=== PATIENT | female | born 1975 | race Caucasian/White ===

== ENCOUNTER 2016-09-25 08:20 | Outpatient (CLI) | payer OTHER | END 2016-09-25 08:21 | disposition home or self-care (01) | DX: N92.1 Excessive and frequent menstruation with irregular cycle (principal) ==

== ENCOUNTER 2016-10-07 05:46 | Emergency (ER) | payer OTHER ==
[2016-10-07] MEDS ORDERED: SODIUM CHLORIDE 0.9% 1,000 ML IV STA (07:00)
[2016-10-07] MEDS ORDERED: ONDANSETRON 4 MG/2 ML VIAL IVP STA (07:00)
[2016-10-07] MEDS ORDERED: ONDANSETRON 4 MG/2 ML VIAL ONE (07:06)
[2016-10-07] MEDS ORDERED: DIPHENOX/ATROPINE 2.5/0.025 MG TABLET PO STA (07:14)
[2016-10-07] MEDS ORDERED: KETOROLAC 60 MG/2 ML VIAL IVP STA (07:14)
[2016-10-07] MEDS ORDERED: DIPHENOX/ATROPINE 2.5/0.025 MG TABLET PO ONE (07:21)
[2016-10-07] MEDS ORDERED: KETOROLAC 60 MG/2 ML VIAL ONE (07:22)
[2016-10-07] MEDS ORDERED: HYDROmorphone 1 MG/ML SYRINGE IVP STA (08:31)
[2016-10-07] MEDS ORDERED: HYDROmorphone 1 MG/ML SYRINGE ONE (08:41)
== END 2016-10-07 09:26 | disposition home or self-care (01) ==
DX: R19.7 Diarrhea, unspecified (principal); R10.84 Generalized abdominal pain; R11.2 Nausea with vomiting, unspecified
CPT/HCPCS: 36415; 80053; 81001; 81025; 83690; 85025; 87045; 87046; 87086; 87493; 96374; 96375; 99283; 99284; A9270; J1170

== ENCOUNTER 2017-04-06 08:11 | Outpatient (CLI) | payer OTHER ==
[2017-04-06 13:53] LABS: BASOPHILS # (AUTO) 0.1 10^3/uL (0.0-0.1); EOSINOPHILS # (AUTO) 0.3 10^3/uL (0.0-0.7); EOSINOPHILS % (AUTO) 3.2 %; HCT - HEMATOCRIT 35.8 % (37.0-47.0); HGB - HEMOGLOBIN 11.5 g/dL (12.0-16.0); LYMPHOCYTES # (AUTO) 1.3 10^3/uL (1.5-3.5); MEAN CORPUSCULAR HEMOGLOBIN 25.1 pg (27.0-31.0); MEAN CORPUSCULAR HGB CONC 32.1 g/dL (32.0-36.0); MEAN CORPUSCULAR VOLUME 78.2 fL (81.0-99.0); MEAN PLATELET VOLUME 8.8 fL (7.9-10.8); MONOCYTES # (AUTO) 0.7 10^3/uL (0.0-1.0); NEUTROPHILS # (AUTO) 8.5 10^3/uL (1.5-6.6); NEUTROPHILS % (AUTO) 77.8 %; NUCLEATED RED BLOOD CELLS AUTO 0.1 /100WBC; RED BLOOD COUNT 4.58 10^6/uL (4.20-5.40); RED CELL DISTRIBUTION WIDTH 15.5 % (12.0-15.0)
[2017-04-06 14:28] LABS: IRON 34 ug/dL (28-170); TOTAL IRON BINDING CAPACITY 288 ug/dL (250-450); TRANSFERRIN 206 mg/dL (192-382)
== END 2017-04-06 08:12 | disposition home or self-care (01) ==
LOC: LAB.WCP 08:11
PROVIDERS: ATTEND Family Medicine
DX: D50.9 Iron deficiency anemia, unspecified (principal)
CPT/HCPCS: 36415; 82728; 83540; 84466; 85025

== ENCOUNTER 2017-04-12 08:21 | Emergency (ER) | payer OTHER ==
[2017-04-12] MEDS ORDERED: SODIUM CHLORIDE 0.9% 1,000 ML IV ONE (09:20)
[2017-04-12] MEDS ORDERED: HYDROmorphone 1 MG/ML SYRINGE IVP STA ×2 (09:20→11:06)
[2017-04-12 09:26] LABS: BASOPHILS # (AUTO) 0.1 10^3/uL (0.0-0.1); BASOPHILS % (AUTO) 0.6 %; EOSINOPHILS # (AUTO) 0.4 10^3/uL (0.0-0.7); HCT - HEMATOCRIT 32.8 % (37.0-47.0); HGB - HEMOGLOBIN 10.5 g/dL (12.0-16.0); LYMPHOCYTES # (AUTO) 1.3 10^3/uL (1.5-3.5); LYMPHOCYTES % (AUTO) 12.1 %; MEAN CORPUSCULAR HGB CONC 32.2 g/dL (32.0-36.0); MEAN CORPUSCULAR VOLUME 77.6 fL (81.0-99.0); MEAN PLATELET VOLUME 8.4 fL (7.9-10.8); MONOCYTES # (AUTO) 0.8 10^3/uL (0.0-1.0); MONOCYTES % (AUTO) 7.7 %; NEUTROPHILS # (AUTO) 8.3 10^3/uL (1.5-6.6); NEUTROPHILS % (AUTO) 75.6 %; RED BLOOD COUNT 4.22 10^6/uL (4.20-5.40); RED CELL DISTRIBUTION WIDTH 15.2 % (12.0-15.0); UNCORRECTED WHITE BLOOD COUNT 10.9 x10^3/uL; WHITE BLOOD COUNT 10.9 x10^3/uL (4.8-10.8)
--- NOTE | 2017-04-12 09:28 | ED Physician Documentation ---
History of Present Illness - Stated complaint Stated Complaint: FEMALE - Chief complaint Chief Complaint: General - Additonal information Additional information: Patient is a 42-year-old female with a history of dysfunctional uterine bleeding. She is under the care of her SUPERVISOR PASTRY has had negative biopsies. She has had persistent bleeding for months that has been refractory to Depo-Provera and oral control pills. She is here with continued bleeding, the passage of clots, and a feeling of lightheadedness. She has never required a blood transfusion but has had iron transfusions in the past. She has no fever chills there is no nausea vomiting she is heavy vaginal bleeding and lower abdominal pain and cramping. She is supposed to see a physician at [facility] to be evaluated for a hysterectomy. She has never had children. She does have hypertension and diabetes that are relatively well controlled. She does have a history of significant obesity. Review of systems: For pertinent positive and negatives in the review of systems please see the history of present illness, otherwise all other systems have been reviewed and are negative. Dragon disclaimer: Parts of this medical record were created using voice recognition technology. Because of the inherent limitations of this system, occasional same sounding word substitutions do occur and persist despite proofreading. Please read the document for context. Review of Systems GI: reports: Abdominal Pain. denies: Abdominal Swelling, Nausea, Vomiting : reports: Vaginal bleeding, Irregular menses PD PAST MEDICAL HISTORY - Past Medical History Past Medical History: Yes Cardiovascular: Hypertension Respiratory: None Neuro: None Endocrine/Autoimmune: None GI: None : Chronic bladder infection HEENT: None Psych: None Musculoskeletal: Chronic back pain Derm: None - Past Surgical History Past Surgical History: Yes HEENT: Cataracts - Present Medications Home Medications: Ambulatory Orders Medication Instructions Recorded Confirmed Atenolol 50 mg PO BID 08/26/13 07/23/16 Hydrochlorothiazide 25 mg PO DAILY 04/12/17 04/12/17 Progesterone,Micronized 200 mg PO DAILY PM #30 capsule 04/12/17 [Prometrium] oxyCODONE/ACET 5/325 [Percocet 5 1 each PO ONCE PRN #16 tablet 04/12/17 mg/325 mg] - Allergies Allergies/Adverse Reactions: Allergies Allergy/AdvReac Type Severity Reaction Status Date / Time ketorolac tromethamine * Allergy Itching Verified 04/12/17 09:37 [From Toradol] Sulfa (Sulfonamide Allergy Rash Verified 04/18/16 19:05 Antibiotics) - Social History Does the pt smoke?: No Smoking Status: Never smoker Does the pt drink ETOH?: Yes Does the pt have substance abuse?: No - Immunizations Immunizations are current?: Yes - POLST Patient has POLST: No PD ED PE NORMAL - Vitals Vital signs reviewed: Yes - General General: Alert 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, No acute distress, Well developed/nourished - HEENT HEENT: Atraumatic, Pharynx benign - Neck Neck: Supple, no meningeal sign, No JVD, No bruit - Cardiac Cardiac: RRR, No murmur, No gallop, No rub - Respiratory Respiratory: No respiratory distress, Clear bilaterally - Abdomen Abdomen: Normal bowel sounds, Soft, Non tender, Non distended - Derm Derm: Normal color, Warm and dry, No rash, Other - Extremities Extremities: No deformity, No tenderness to palpate, Normal ROM s pain, No edema - Neuro Neuro: Alert 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 Results - Vitals Vitals: Vital Signs - 24 hr 04/12/17 04/12/17 04/12/17 08:28 09:33 10:45 Temperature 36.3 C L 36.6 C 36.6 C Heart Rate 94 94 97 Respiratory 18 16 18 Rate Blood Pressure 147/98 H 143/86 H 138/98 H O2 Saturation 98 98 97 04/12/17 04/12/17 04/12/17 11:25 11:36 11:52 Temperature 36.5 C Heart Rate 70 95 94 Respiratory 18 15 16 Rate Blood Pressure 129/73 123/85 H 114/82 H O2 Saturation 96 94 04/12/17 04/12/17 12:30 14:23 Temperature 36.5 C Heart Rate 90 95 Respiratory 18 18 Rate Blood Pressure 146/89 H 134/88 H O2 Saturation 97 100 Oxygen O2 Source Room air - Labs Labs: Laboratory Tests 04/12/17 04/12/17 04/12/17 09:05 09:05 09:05 WBC 10.9 H RBC 4.22 Hgb 10.5 L Hct 32.8 L MCV 77.6 L MCH 25.0 L MCHC 32.2 RDW 15.2 H Plt Count 299 MPV 8.4 Neut # 8.3 H Lymph # 1.3 L Bladen # 0.8 Eos # 0.4 Baso # 0.1 Absolute Nucleated RBC 0.00 Nucleated RBCs 0.0 Sodium Potassium Chloride Carbon Dioxide Anion Gap BUN Creatinine Estimated GFR (MDRD) Glucose Calcium Iron TIBC % Saturation Transferrin Ferritin 12.4 Total Bilirubin AST ALT Alkaline Phosphatase Total Protein Albumin Globulin Albumin/Globulin Ratio Lipase Urine Color Urine Clarity Urine pH Ur Specific [place] Urine Protein Urine Glucose (UA) Urine Ketones Urine Occult Blood Urine Nitrite Urine Bilirubin Urine Urobilinogen Ur Leukocyte Esterase Urine RBC Urine WBC Urine WBC Clumps Ur Squamous Epith Cells Urine Bacteria Ur Microscopic Review Urine Culture Comments Urine HCG, Qual Blood Type Blood Type Recheck A POSITIVE Antibody Screen 04/12/17 04/12/17 04/12/17 09:14 09:14 10:40 WBC RBC Hgb Hct MCV MCH MCHC RDW Plt Count MPV Neut # Lymph # Bladen # Eos # Baso # Absolute Nucleated RBC Nucleated RBCs Sodium 136 Potassium 3.9 Chloride 106 Carbon Dioxide 23 Anion Gap 7.0 BUN 10 Creatinine 0.6 Estimated GFR (MDRD) 110 Glucose 146 H Calcium 8.4 L Iron 21 L TIBC 290 % Saturation 7 L Transferrin 207 Ferritin Total Bilirubin 0.4 AST 17 ALT 21 Alkaline Phosphatase 83 Total Protein 7.1 Albumin 3.3 Globulin 3.8 Albumin/Globulin Ratio 0.9 L Lipase 35 Urine Color RED/BLOODY Urine Clarity BLOODY Urine pH 7.5 Ur Specific [place] 1.010 Urine Protein >=300 H Urine Glucose (UA) NEGATIVE Urine Ketones NEGATIVE Urine Occult Blood LARGE H Urine Nitrite NEGATIVE Urine Bilirubin NEGATIVE Urine Urobilinogen 1 (NORMAL) Ur Leukocyte Esterase TRACE H Urine RBC TNTC H Urine WBC 11-25 H Urine WBC Clumps PRESENT Ur Squamous Epith Cells FEW Squamous Urine Bacteria None Seen Ur Microscopic Review INDICATED Urine Culture Comments INDICATED Urine HCG, Qual NEGATIVE Blood Type A POSITIVE Blood Type Recheck Antibody Screen NEGATIVE PD MEDICAL DECISION MAKING - ED course Complexity details: reviewed old records, reviewed results, re-evaluated patient , considered differential, d/w patient, d/w family ED course: 42-year-old female with morbid obesity and a long history of heavy vaginal bleeding refractory to Depo-Provera who is currently on oral contraceptives. She presents with lower abdominal pain and cramping and passage of clots. She does look well on examination without any obvious evidence of anemia. Her vital signs are stable. Her hemoglobin was 10 here. Her iron was low again so she is given iron infusion here in emergency department which she tolerated nicely. She was given couple doses of pain medication and currently looks and feels much better. Based on the patient's obesity I believe her dysfunctional uterine bleeding is probably related to estrogen excess and I think giving her supplemental progesterone in the form of Prometrium is probably the best course of action. She will be prescribed Prometrium 200 mg to take each night and was also prescribed a small amount of narcotic analgesia. I have asked her to watch her symptoms closely in case her bleeding persists persists persists or gets worse. I recommended that she follow-up with her SUPERVISOR PASTRY as soon as possible to see if they can expedite her consultation with [facility] for possible hysterectomy. She agrees to watch her symptoms closely and return should she become symptomatic. I disposition: To home Clinical impression: 1. Dysfunctional uterine bleeding- 2. Morbid obesity and probable estrogen excess 3. Iron deficiency status post iron infusion Departure - Departure Disposition: 01 Home, Self Care Clinical Impression: Dysfunctional uterine bleeding Condition: Good Instructions: ED Bleed Irregular Vaginal, ED Cramping Menstrual Follow-Up: Luann Carrillo DO [Primary Care Provider] - Prescriptions: oxyCODONE/ACET 5/325 [Percocet 5 mg/325 mg] 1 each PO ONCE PRN #16 tablet PRN Reason: Pain Progesterone,Micronized [Prometrium] 200 mg PO DAILY PM #30 capsule Comments: Recommend that you stop the oral contraceptive. Your irregular and heavy vaginal bleeding is very likely due to estrogen excess. I recommend he take Prometrium at night because it causes sedation and continue to watch her symptoms closely for worsening. I recommend you get follow-up as soon as you can with [facility] for evaluation for hysterectomy. If worse please return Forms: Activity restrictions
[2017-04-12] MEDS ORDERED: KETOROLAC 30 MG/ML VIAL ONE (09:30)
[2017-04-12] MEDS ORDERED: HYDROmorphone 1 MG/ML SYRINGE ONE ×2 (09:31→11:16)
[2017-04-12] MEDS ORDERED: SODIUM CHLORIDE FLUSH 0.9% 10 ML SYRINGE IVP ONE ×2 (09:33→11:17)
[2017-04-12] MEDS: KETOROLAC 60 MG/2 ML VIAL IVP STA ×2 (09:33→09:38)
[2017-04-12 09:49] LABS: ALBUMIN/GLOBULIN RATIO 0.9 (1.0-2.2); BILIRUBIN,TOTAL 0.4 mg/dL (0.2-1.0); CALCIUM 8.4 mg/dL (8.5-10.3); CREATININE 0.6 mg/dL (0.4-1.0); POTASSIUM 3.9 mmol/L (3.5-5.0); TOTAL PROTEIN 7.1 g/dL (6.7-8.2)
[2017-04-12 10:54] LABS: BILIRUBIN,URINE NEGATIVE (NEGATIVE); PH,URINE 7.5 PH (5.0-7.5)
[2017-04-12 10:57] LABS: HCG UR QUAL NEGATIVE; UA w/ MICROSCOPIC CHARGE YES
[2017-04-12] MEDS ORDERED: IRON SUCROSE 200 MG in SODIUM CHLORIDE 0.9% 100ML 100 ML IV ONE (11:03)
[2017-04-12 11:20] LABS: UR CULTURE IF IND INDICATED
[2017-04-12] MEDS ORDERED: HYDROcod/ACETAM 5/325 MG TABLET PO STA (13:58)
[2017-04-12] MEDS ORDERED: HYDROcod/ACETAM 5/325 MG TABLET ONE (14:06)
[2017-04-12 14:23] VITALS: BP 134/88
== END 2017-04-12 14:36 | disposition home or self-care (01) ==
LOC: ED 08:21
DX: N93.8 Other specified abnormal uterine and vaginal bleeding (principal); D50.9 Iron deficiency anemia, unspecified; E66.01 Morbid (severe) obesity due to excess calories; Z79.899 Other long term (current) drug therapy; I10 Essential (primary) hypertension
CPT/HCPCS: 36415; 80053; 81001; 81025; 82728; 83540; 83690; 84466; 85025; 86850; 86900; 86901; 87086; 96374; 96376; 99284; A9270; J1170; J1756; 81003

== ENCOUNTER 2017-04-22 14:05 | Outpatient (CLI) | payer OTHER ==
[2017-04-22 19:30] LABS: BASOPHILS # (AUTO) 0.1 10^3/uL (0.0-0.1); BASOPHILS % (AUTO) 0.9 %; EOSINOPHILS # (AUTO) 0.5 10^3/uL (0.0-0.7); EOSINOPHILS % (AUTO) 3.8 %; HCT - HEMATOCRIT 29.1 % (37.0-47.0); HGB - HEMOGLOBIN 9.3 g/dL (12.0-16.0); LYMPHOCYTES % (AUTO) 15.5 %; MEAN CORPUSCULAR HGB CONC 31.9 g/dL (32.0-36.0); MEAN CORPUSCULAR VOLUME 78.3 fL (81.0-99.0); MEAN PLATELET VOLUME 8.5 fL (7.9-10.8); MONOCYTES % (AUTO) 8.1 %; NEUTROPHILS # (AUTO) 9.1 10^3/uL (1.5-6.6); NEUTROPHILS % (AUTO) 71.7 %; NUCLEATED RED BLOOD CELLS AUTO 0.1 /100WBC; RED BLOOD COUNT 3.72 10^6/uL (4.20-5.40); UNCORRECTED WHITE BLOOD COUNT 12.7 x10^3/uL; WHITE BLOOD COUNT 12.7 x10^3/uL (4.8-10.8)
== END 2017-04-22 14:06 | disposition home or self-care (01) ==
LOC: LAB.WCP 14:05
PROVIDERS: ATTEND Family Medicine
DX: D64.9 Anemia, unspecified (principal)
CPT/HCPCS: 36415; 85025

== ENCOUNTER 2017-04-23 12:44 | Day surgery (SDC) | payer OTHER ==
--- NOTE | 2017-04-23 13:11 | ED Physician Documentation ---
PD HPI FEMALE - Stated complaint Stated Complaint: FEMALE - Chief complaint Chief Complaint: Abd Pain - History obtained from History obtained from: Patient - History of Present Illness Timing - onset: How many months ago (4) Timing - duration: Months (has had 4 months of nearly daily vaginal bleeding, and has gotten iron infusion recently with slight boost in blood count. Had some increase in rate of bleeding the past couple days. Feeling weak and tired. Blood count dropped from Hgb 10 to 9 over few days, so referred to ED by PCP to see METHODS TIME ANALYST.) Timing - details: Gradual onset, Waxing and waning Associated symptoms: Vaginal bleeding. No: Vaginal discharge, Genital sore/ lesion Similar symptoms before: Has not had sx before Recently seen: Clinic Review of Systems Constitutional: denies: Fever, Chills Neurologic: reports: Generalized weakness. denies: Focal weakness, Numbness, Near syncope Endocrine: denies: Easy bruising / bleeding PD PAST MEDICAL HISTORY - Past Medical History Cardiovascular: Hypertension Respiratory: None Neuro: None Endocrine/Autoimmune: None GI: None : Chronic bladder infection HEENT: None Psych: None Musculoskeletal: Chronic back pain Derm: None - Past Surgical History Past Surgical History: Yes HEENT: Cataracts - Present Medications Home Medications: Ambulatory Orders Medication Instructions Recorded Confirmed Progesterone,Micronized 200 mg PO DAILY PM #30 capsule 04/12/17 [Prometrium] Furosemide [Lasix] 40 mg PO DAILY 04/23/17 04/23/17 Potassium Chloride 20 meq PO 04/23/17 Ranitidine HCl [Heartburn Relief] 75 mg PO 04/23/17 - Allergies Allergies/Adverse Reactions: Allergies Allergy/AdvReac Type Severity Reaction Status Date / Time ketorolac tromethamine * Allergy Itching Verified 04/23/17 12:51 [From Toradol] Sulfa (Sulfonamide Allergy Rash Verified 04/23/17 12:51 Antibiotics) - Social History Does the pt smoke?: No Smoking Status: Never smoker Does the pt drink ETOH?: Yes Does the pt have substance abuse?: No - Immunizations Immunizations are current?: Yes - POLST Patient has POLST: No PD ED PE NORMAL - Vitals Vital signs reviewed: Yes - General General: Alert 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, No acute distress, Well developed/nourished - Abdomen Abdomen: Normal bowel sounds, Soft, Non tender, Non distended, No organomegaly - Female Female : Deferred - Rectal Rectal: Deferred - Back Back: No CVA TTP Results - Vitals Vitals: Vital Signs - 24 hr 04/23/17 04/23/17 04/23/17 12:47 18:16 19:10 Temperature 36.6 C Heart Rate 92 106 H Respiratory 16 16 Rate Blood Pressure 138/85 H 135/78 H Blood Pressure [Brachial artery] O2 Saturation 99 98 100 04/23/17 04/23/17 04/23/17 19:15 19:20 19:30 Temperature Heart Rate Respiratory Rate Blood Pressure Blood Pressure [Brachial artery] O2 Saturation 97 96 96 04/23/17 04/23/17 04/23/17 19:44 19:47 20:11 Temperature 36.8 C 37 C Heart Rate 100 98 Respiratory 16 16 Rate Blood Pressure Blood Pressure 156/80 H 165/86 H [Brachial artery] O2 Saturation 95 94 95 04/23/17 20:35 Temperature 37.0 C Heart Rate 96 Respiratory 16 Rate Blood Pressure Blood Pressure 158/81 H [Brachial artery] O2 Saturation 97 Oxygen O2 Source Room air - Labs Labs: Laboratory Tests 04/23/17 04/23/17 04/23/17 14:08 14:08 14:08 WBC 12.4 H RBC 3.70 L Hgb 9.1 L Hct 28.2 L MCV 76.2 L MCH 24.5 L MCHC 32.1 RDW 15.7 H Plt Count 303 MPV 8.0 PT 12.0 INR 1.1 APTT 24.9 Sodium 137 Potassium 3.4 L Chloride 103 Carbon Dioxide 26 Anion Gap 8.0 BUN 15 Creatinine 0.7 Estimated GFR (MDRD) 92 Glucose 106 H Calcium 8.8 Total Bilirubin 0.2 AST 20 ALT 33 Alkaline Phosphatase 86 Total Protein 7.3 Albumin 3.4 Globulin 3.9 Albumin/Globulin Ratio 0.9 L Lipase 27 TSH Urine Color Urine Clarity Urine pH Ur Specific [place] Urine Protein Urine Glucose (UA) Urine Ketones Urine Occult Blood Urine Nitrite Urine Bilirubin Urine Urobilinogen Ur Leukocyte Esterase Urine RBC Urine WBC Ur Squamous Epith Cells Urine Bacteria Urine Mucus Ur Microscopic Review Urine Culture Comments Urine HCG, Qual Blood Type Antibody Screen 04/23/17 04/23/17 04/23/17 14:08 14:08 14:35 WBC RBC Hgb Hct MCV MCH MCHC RDW Plt Count MPV PT INR APTT Sodium Potassium Chloride Carbon Dioxide Anion Gap BUN Creatinine Estimated GFR (MDRD) Glucose Calcium Total Bilirubin AST ALT Alkaline Phosphatase Total Protein Albumin Globulin Albumin/Globulin Ratio Lipase TSH 2.22 Urine Color RED/BLOODY Urine Clarity BLOODY Urine pH 7.0 Ur Specific [place] 1.020 Urine Protein 100 H Urine Glucose (UA) NEGATIVE Urine Ketones NEGATIVE Urine Occult Blood LARGE H Urine Nitrite NEGATIVE Urine Bilirubin NEGATIVE Urine Urobilinogen 0.2 (NORMAL) Ur Leukocyte Esterase TRACE H Urine RBC TNTC H Urine WBC >25 H Ur Squamous Epith Cells MOD Squamous H Urine Bacteria Rare Urine Mucus Ur Microscopic Review INDICATED Urine Culture Comments Urine HCG, Qual NEGATIVE Blood Type A POSITIVE Antibody Screen NEGATIVE 04/23/17 18:55 WBC RBC Hgb Hct MCV MCH MCHC RDW Plt Count MPV PT INR APTT Sodium Potassium Chloride Carbon Dioxide Anion Gap BUN Creatinine Estimated GFR (MDRD) Glucose Calcium Total Bilirubin AST ALT Alkaline Phosphatase Total Protein Albumin Globulin Albumin/Globulin Ratio Lipase TSH Urine Color YELLOW Urine Clarity HAZY Urine pH 6.0 Ur Specific [place] >=1.030 H Urine Protein NEGATIVE Urine Glucose (UA) NEGATIVE Urine Ketones NEGATIVE Urine Occult Blood TRACE-INTA Urine Nitrite NEGATIVE Urine Bilirubin NEGATIVE Urine Urobilinogen 0.2 (NORMAL) Ur Leukocyte Esterase NEGATIVE Urine RBC 0-5 Urine WBC 0-3 Ur Squamous Epith Cells MANY Squamous H Urine Bacteria Rare Urine Mucus Few Strands Ur Microscopic Review Urine Culture Comments NOT INDICATED Urine HCG, Qual Blood Type Antibody Screen PD MEDICAL DECISION MAKING - ED course Complexity details: reviewed results, considered differential (vaginal bleeding for 3-4 months with recent workup of labs and ultrasound, referred to ED to have METHODS TIME ANALYST evaluation. Dr. Wills came to ED soon after patient arrival. Patient is stable at this time. ), d/w patient, other (Dr. Wills saw patient and will take her to OR for scope and biopsies, and possible curretage. ) Departure - Departure Disposition: ED Transfer to [facility] Clinical Impression: Dysfunctional uterine bleeding Anemia Qualifiers: Anemia type: iron deficiency Iron deficiency anemia type: chronic blood loss Qualified Code(s): D50.0 - Iron deficiency anemia secondary to blood loss ( chronic) Condition: Stable Record reviewed to determine appropriate education?: Yes Discharge Date/Time: 04/23/17 18:17
[2017-04-23] MEDS ORDERED: HYDROcod/ACETAM 5/325 MG TABLET PO STA (13:26)
[2017-04-23] MEDS ORDERED: HYDROcod/ACETAM 5/325 MG TABLET ONE (13:36)
[2017-04-23 14:30] LABS: HCT - HEMATOCRIT 28.2 % (37.0-47.0); HGB - HEMOGLOBIN 9.1 g/dL (12.0-16.0); MEAN CORPUSCULAR HEMOGLOBIN 24.5 pg (27.0-31.0); MEAN CORPUSCULAR HGB CONC 32.1 g/dL (32.0-36.0); MEAN CORPUSCULAR VOLUME 76.2 fL (81.0-99.0); RED BLOOD COUNT 3.7 10^6/uL (4.20-5.40); RED CELL DISTRIBUTION WIDTH 15.7 % (12.0-15.0); WHITE BLOOD COUNT 12.4 x10^3/uL (4.8-10.8)
[2017-04-23 14:37] LABS: INR 1.1 (0.8-1.2)
[2017-04-23 14:39] LABS: ALBUMIN/GLOBULIN RATIO 0.9 (1.0-2.2); BILIRUBIN,TOTAL 0.2 mg/dL (0.2-1.0); CALCIUM 8.8 mg/dL (8.5-10.3); CREATININE 0.7 mg/dL (0.4-1.0); POTASSIUM 3.4 mmol/L (3.5-5.0); TOTAL PROTEIN 7.3 g/dL (6.7-8.2)
[2017-04-23 14:44] LABS: PARTIAL THROMBOPLASTIN TIME 24.9 secs (24.9-33.3)
[2017-04-23 15:15] LABS: BILIRUBIN,URINE NEGATIVE (NEGATIVE)
[2017-04-23 15:31] LABS: HCG UR QUAL NEGATIVE; UA w/ MICROSCOPIC CHARGE YES
[2017-04-23 15:32] LABS: WBC,URINE >25 /HPF (0-5)
[2017-04-23] MEDS ORDERED: HYDROmorphone 1 MG/ML SYRINGE IVP STA (16:34)
[2017-04-23] MEDS ORDERED: ONDANSETRON 4 MG/2 ML VIAL IVP STA (16:34)
[2017-04-23] MEDS ORDERED: LACTATED RINGERS 1,000 ML IV STA (16:34)
[2017-04-23] MEDS ORDERED: SODIUM CHLORIDE FLUSH 0.9% 10 ML SYRINGE IVP ONE (16:35)
[2017-04-23] MEDS ORDERED: ONDANSETRON 4 MG/2 ML VIAL ONE (16:52)
[2017-04-23] MEDS ORDERED: PROPOFOL 200 MG/20 ML VIAL IVP ONE (18:00)
[2017-04-23] MEDS ORDERED: SUCCINYLCHOLINE 200 MG/10 ML VIAL IVP ONE (18:00)
[2017-04-23] MEDS ORDERED: MIDAZOLAM 2 MG/2 ML VIAL IVP ONE (18:00)
[2017-04-23] MEDS ORDERED: ROCURONIUM 50 MG/5 ML VIAL IVP ONE (18:00)
[2017-04-23] MEDS ORDERED: fentaNYL 100 MCG/2 ML VIAL IVP ONE (18:00)
[2017-04-23] MEDS ORDERED: LACTATED RINGERS 1,000 ML IV ONE ×2 (18:36→19:20)
[2017-04-23] MEDS ORDERED: DEXAMETHASONE 4 MG/ML VIAL ONE (19:20)
[2017-04-23] MEDS ORDERED: ACETAMINOPHEN 1,000 MG/100 ML 100 ML IV ONE (19:20)
[2017-04-23 19:25] LABS: BILIRUBIN,URINE NEGATIVE (NEGATIVE)
[2017-04-23] MEDS: HYDROmorphone 1 MG/ML SYRINGE ONE ×2 (19:25→19:33)
[2017-04-23 19:31] LABS: UR CULTURE IF IND NOT INDICATED; WBC,URINE 0-3 /HPF (0-5)
[2017-04-23] MEDS ORDERED: HYDROmorphone 1 MG/ML SYRINGE ONE (19:33)
[2017-04-23] MEDS ORDERED: IBUPROFEN 600 MG TABLET PO ONE (19:55)
[2017-04-23 20:58] VITALS: BP 158/81
--- NOTE | 2017-04-24 08:31 | OPERATIVE REPORT ---
DATE OF SURGERY: 04/23/2017 00:00:00 PREOPERATIVE DIAGNOSES 1. Continued uterine bleeding and menorrhagia. 2. Failure of multiple medical treatments. 3. Morbid obesity, BMI 61. 4. Hypertension. 5. Anemia. 6. Obstructive sleep apnea. POSTOPERATIVE DIAGNOSES 1. Abnormal thickening of the endometrium, suspect hyperplasia. 2. Await final pathology. NAME OF PROCEDURE 1. Diagnostic Video hysteroscopy. 2. Fractional dilatation and curettage. 3. Exam under anesthesia. SURGEON: Aiden Wills MD, FACOG, [facility] ANESTHESIA: Lakesha Martin, Certified Nurse Fringe Maker. General, ET tube placed. COMPLICATIONS: None. ESTIMATED BLOOD LOSS: Less than 50. DRAINS: None. Patient straight catheterized prior to procedure. IV FLUIDS: 700. FLUID BALANCE: 1600 mL crystalloid in and 1500 out (measured) FINDINGS 1. The external genitalia has some hyperkeratosis, but no evidence of dysplastic or HPV type lesions. There are no ulcers or evident dystrophies. The introitus is nulliparous. 2. Vagina: Blood and old clots in the vault. Grade 1 midline cystorectocele. 3. Cervix: No cervical lesions or inflamation noted. Nulliparous. 4. Uterus: Difficult to evaluate by palpation, seemed slightly enlarged and retroverted. Adnexa not palpable. 5. Hysteroscopic findings: Endometrium overall has a global effect of proliferation. However, in the right cornual area and posterior aspect of the cornua, there is a mount of fluffy tissue that is evidently hyperplastic, but without dysplastic vascular changes. Moderate amount of blood in the uterine cavity which was evacuated. SPECIMENS #1 and #2: Two hysteroscopic biopsy specimens from the area of suspected hyperplasia. #3: Endocervical curettings. #4: Endometrial curettings. TECHNIQUE: Prior to the procedure, risks, benefits, and possible complications were discussed. She is aware of potential for continued bleeding, transfusion, perforation, infection, anesthesia reaction, airway collapse, and in rare possibility . All questions were answered and informed consent was signed in the emergency room. Prior to surgery clearance was re-accomplished with Lakesha Martin, the log buncher on record. The patient was brought to the operating room and placed in supine position for administration of general anesthesia. She was uneventfully induced and intubated using fiberoptic technique. After securing the airway, we moved to the procedure. She was moved to the low dorsal lithotomy position using Yellofin mobile stirrups. She was prepped and draped in the customary sterile fashion. She was straight catheterized of urine. Timeout consent was done per protocol. Exam under anesthesia was performed, reference findings. Large Graves speculum was inserted. The anterior cervical lip was grasped with single-toothed tenaculum. The cervix was gently dilated with Hegar probes 1 through 5. After dilation, the 5 mm diagnostic hysteroscope was introduced through the endocervical canal and into the uterine cavity. The cavity was filled with clots and was flushed several times before visualization was obtained. Systematic panorama of the uterine cavity was conducted. For the most part proliferative changes were seen except for tissue in right cornual and posterior aspect of the cornual region. This was biopsied with hysteroscopic forceps and submitted to Pathology. Next, a small curette was introduced into the endocervical canal and all 4 quadrants were sampled as specimen sent to Pathology. Endometrial curetting was done with a medium sized curette in a systematic fashion. Care was taken to avoid perforation. All 4 quadrants were scraped until uterine cry was elicited. Tissue samples were sent to pathology. We observed for 5 minutes to ensure that there was no continued bleeding. Hysteroscope was reinserted, and the cavity flushed. There was no evidence of perforation and approximately 75% of all tissue was sampled during curettage. The patient was extubated and uneventfully aroused from anesthesia. She went to the recovery room in stable condition. Postoperatively, she did well and was prepared for discharge home. DISCHARGE MEDICATIONS 1. Motrin 600 mg p.o. q.6h. around the clock for 3 days and then for pain as needed. 2. Vicodin 325/5 one tablet q.4h. sparingly p.r.n. pain. 3. Colace 100 b.i.d. x30 days. Patient will be seen in the office next week for tissue followup. JOB #: [id number] EXT JOB #:[id number] KIKO
--- NOTE | 2017-04-26 08:29 | HISTORY & PHYSICAL EXAMINATION ---
DATE OF ADMISSION: 04/23/2017 EMERGENCY ROOM CONSULT AND PREOPERATIVE HISTORY AND PHYSICAL DIAGNOSES 1. Continued menorrhagia despite multiple medical therapy. 2. Anemia. 3. Morbid obesity, 61%. 4. Hypertension. 5. Sleep apnea. 6. Depression. The patient slime is a 42-year-old nulligravida who has experienced 4 months of intermittent bouts of menorrhagia. Often she reports clots and the amount of blood loss has been accelerating over the last month. She reports fatigue, lightheadedness, and orthostatic signs. She was evaluated by her PCP, Dr. Carrillo, and sent to the emergency room for immediate gynecologic consultation due to the accelerating volume of blood loss and symptoms of anemia. She was originally seen at the [facility] by Rhianna Malcolm, certified nurse pattern finisher on the September. Numerous progesterone agents were used inclusive of Depo-Provera, Prometrium, Micronor, and combination OCPs. All these have failed to stop the bleeding. Ultrasound reveals an endometrial stripe of 7 mm with no myometrial pathology. There is no ovarian pathology noted. She was referred to Dr. Aiden Molina, who performed endometrial biopsy. They found no evidence of hyperplasia or dysplasia. In turn , she was referred to the [facility] for further workup and treatment. She denies a history of coagulopathy or a family history of easy bleeding tendency. She is currently not on NSAIDs. There is no foul discharge or history of STD. In the past, she states she underwent possible hysteroscopy at [facility]; however, no records of report could be found. PAST MEDICAL HISTORY: The patient has a history of hypertension and is currently on medication. She states she has been tested for diabetes on multiple occasions and negative with fasting blood sugars at or about 100. She does have a history of sleep apnea and uses CPAP machine. She carries a history of depression and currently uses citalopram plus a second SSRI high. MEDICATIONS 1. Citalopram. 2. Unnamed SSRI. 3. Antihypertensive type to be determined. ALLERGIES: NONE. 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 Prior smoker but has quit 15 years ago. Occasional alcohol. No drug use. FAMILY HISTORY: Depression mother, father, brother. Coronary artery disease. Father at 58. Hypertension, father, early onset at 34. Mother's history not known. Alcohol abuse in paternal grandfather. Depression in father, brother , and maternal relatives. REVIEW OF SYSTEMS CONSTITUTIONAL: Feels weak, orthostatic symptoms. HEENT: Negative. ENDOCRINE: Negative. CARDIAC: Negative. PULMONARY: Negative. GASTROINTESTINAL: Negative. MUSCULOSKELETAL: Joint pain due to arthritic rigors. PHYSICAL EXAMINATION GENERAL: The patient lying comfortably in bed, pickwickian body type, no labored breathing. VITAL SIGNS: Temperature 97.9, pulse 92, blood pressure 138/85, respiration rate 16, oxygenation 99. HENT: EOMI. Moist mucous membranes, good dentition LUNGS: CTA, distatant CARDIAC: regular 2/6 IVET ABDOMEN: Large pannus. No tenderness. EXTERNAL GENITALIA: Deferred to the OR. VAGINA: Bleeding and clots on pad, deferred to OR. CERVIX: Deferred to OR. UTERUS: Deferred to OR. Ultrasound shows that it is generous without myoma. EXTREMITIES: Mild edema. Some varicosities in the lower extremity. LABORATORIES: Sodium 137, potassium 3.4, glucose 106, creatinine 0.7, BUN 15, lipase negative. TSH normal 2.22, hemoglobin 9.1, platelets 303. Urine contaminated with blood. Hbg 10 grams ASSESSMENT: The patient has had prolonged uterine bleeding without obvious functional lesion and failure of systemic estrogen, progesterone, and combination estrogen and progesterone therapy. Her EMB is negative; however EMB can be falsely negative in 8% of cases. Given the prolonged bleeding, further investigation is warranted with hysteroscopy to characterize the anterior cavity and D and C to hopefully stem bleeding. We discussed possibility of continued medical therapy including returned to combination OCPs and/or IV Premarin. This is rejected. There is DVT risk given her body habitus. Coagulation defect is not suspected; however, citalopram in the literature has a small promotional effect on bleeding. Uncertain if this would be amplified with high dose progesterone. These bleeding defects though are thought to be negligible. PLAN: Discussed need for hysteroscopy and dilatation and curettage with the patient. Contrast this to medical therapy and possible waiting until she could be evaluated at the [facility]. She finds that the current bleeding is totally disruptive and she would rather not wait. We discussed the unique risks of anesthesia given her BMI. This was discussed in detail and Dawit of anesthesia came to the ER for consultation and cleared patient for anesthesia. Informed consent was signed and all questions answered. JOB #: [id number] EXT JOB #:[id number] KIKO
== END 2017-04-23 14:53 | disposition home or self-care (01) ==
LOC: ED 12:44 → SDS 14:52
PROVIDERS: ATTEND Obstetrics & Gynecology
PROC: 0UDB8ZX Extraction of Endometrium, Via Natural or Artificial Opening Endoscopic, Diagnostic (ICD-10-PCS; 2017-04-23)
PROC: 0UBC8ZX Excision of Cervix, Via Natural or Artificial Opening Endoscopic, Diagnostic (ICD-10-PCS; principal; 2017-04-23 16:30)
DX: N93.9 Abnormal uterine and vaginal bleeding, unspecified (principal); N92.0 Excessive and frequent menstruation with regular cycle; I10 Essential (primary) hypertension; D64.9 Anemia, unspecified; G47.33 Obstructive sleep apnea (adult) (pediatric); E66.01 Morbid (severe) obesity due to excess calories; Z68.44 Body mass index [BMI] 60.0-69.9, adult; Z87.891 Personal history of nicotine dependence
CPT/HCPCS: 36415; 58558; 80053; 81001; 81025; 83690; 84443; 85027; 85610; 85730; 86850; 86900; 86901; 93005; 96374; 96375; 99283; A9270; J0131; J1170; J7120; 81003; 87086

== ENCOUNTER 2017-04-24 22:53 | Outpatient (CLI) | payer OTHER | END 2017-04-24 22:54 | disposition critical access hospital (66) | LOC: EMS 22:53 | PROVIDERS: ATTEND Surgery | DX: R07.89 Other chest pain (principal); R42 Dizziness and giddiness | CPT/HCPCS: A0425; A0427 ==

== ENCOUNTER 2017-04-24 23:10 | Emergency (ER) | payer OTHER ==
--- NOTE | 2017-04-24 23:32 | ED Physician Documentation ---
PD HPI CHEST PAIN - Stated complaint Stated Complaint: CHEST PAIN - Chief complaint Chief Complaint: Cardiac - History obtained from History obtained from: Patient, Family, EMS - History of Present Illness Timing - onset: How many hours ago (1) Timing - onset during: Rest Timing - duration: Hours (1) Timing - details: Abrupt onset Pain level max: 4 Pain level now: 4 Quality: Aching, Sharp, Pain, Other (burning) Location: Substernal Radiation: Other (non-radiating) Improved by: Other (nothing, took tums without relief) Worsened by: Other (nothing) Associated symptoms: No: Shortness of air, Diaphoresis, Nausea, Vomiting, Feeling faint / dizzy, General Weakness, Palpitations, Cough Similar symptoms before: Has not had sx before Recently seen: Other (D&C for prolonged vaginal bleeding yesterday. was endotracheally intubated. Had been on multiple hormones to try to stop the bleeding since January) Review of Systems Ten Systems: 10 systems reviewed and negative Constitutional: denies: Fever, Chills Ears: denies: Ear pain Nose: denies: Rhinorrhea / runny nose, Congestion Throat: reports: Sore throat Respiratory: reports: Cough (mild, dry) GI: denies: Abdominal Pain, Vomiting, Diarrhea Skin: denies: Rash Musculoskeletal: denies: Neck pain, Back pain PD PAST MEDICAL HISTORY - Past Medical History Cardiovascular: Hypertension Respiratory: None Neuro: None Endocrine/Autoimmune: None GI: None : Chronic bladder infection HEENT: None Psych: None Musculoskeletal: Chronic back pain Derm: None - Past Surgical History Past Surgical History: Yes HEENT: Cataracts - Present Medications Home Medications: Ambulatory Orders Medication Instructions Recorded Confirmed Progesterone,Micronized 200 mg PO DAILY PM #30 capsule 04/12/17 [Prometrium] Furosemide [Lasix] 40 mg PO DAILY 04/23/17 04/23/17 Potassium Chloride 20 meq PO 04/23/17 Ranitidine HCl [Heartburn Relief] 75 mg PO 04/23/17 - Allergies Allergies/Adverse Reactions: Allergies Allergy/AdvReac Type Severity Reaction Status Date / Time ketorolac tromethamine * Allergy Itching Verified 04/23/17 12:51 [From Toradol] Sulfa (Sulfonamide Allergy Rash Verified 04/23/17 12:51 Antibiotics) - Social History Does the pt smoke?: No Smoking Status: Never smoker Does the pt drink ETOH?: Yes Does the pt have substance abuse?: No - Immunizations Immunizations are current?: Yes - POLST Patient has POLST: No PD ED PE NORMAL - Vitals Vital signs reviewed: Yes - General General: Alert 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, No acute distress - HEENT HEENT: Moist mucous membranes - Neck Neck: Supple, no meningeal sign - Cardiac Cardiac: RRR, Strong equal pulses - Respiratory Respiratory: No respiratory distress, Clear bilaterally - Abdomen Abdomen: Soft, Non tender, Non distended - Derm Derm: Warm and dry - Extremities Extremities: No calf tenderness / cord - Neuro Neuro: Alert 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 - Psych Psych: Normal mood, Normal affect Results - Vitals Vitals: Vital Signs - 24 hr 04/24/17 04/24/17 04/25/17 23:15 23:25 01:40 Temperature 37.2 C Heart Rate 95 90 Respiratory 16 18 Rate Blood Pressure 167/89 H 157/78 H O2 Saturation 99 96 Oxygen O2 Source Room air - EKG (time done) 2329 Rate: Rate (enter#) (90) Rhythm: NSR [place]: Normal Intervals: Normal [place] QRS: Normal Ischemia: Normal ST segments Computer interpretation: Agree with computer - Labs Labs: Laboratory Tests 04/24/17 04/24/17 04/24/17 23:45 23:45 23:45 WBC 11.7 H RBC 3.33 L Hgb 8.0 L Hct 25.3 L MCV 75.9 L MCH 24.0 L MCHC 31.6 L RDW 15.6 H Plt Count 281 MPV 7.7 L Neut # 8.4 H Lymph # 2.1 [place] # 0.9 Eos # 0.3 Baso # 0.1 Absolute Nucleated RBC 0.00 Nucleated RBCs 0.0 Sodium 137 Potassium 3.3 L Chloride 106 Carbon Dioxide 24 Anion Gap 7.0 BUN 17 Creatinine 0.7 Estimated GFR (MDRD) 92 Glucose 149 H Calcium 8.5 Total Bilirubin < 0.2 L AST 17 ALT 26 Alkaline Phosphatase 73 Troponin I < 0.04 Total Protein 6.7 Albumin 3.2 Globulin 3.5 Albumin/Globulin Ratio 0.9 L Lipase 36 - Rads (name of study) CT PA Radiology: Prelim report reviewed, EMP read contemporaneously, See rad report ( No evidence for pulmonary emboli. Mildly limited. No acute findings are seen) PD MEDICAL DECISION MAKING - ED course Complexity details: reviewed old records, reviewed results, re-evaluated patient , considered differential, d/w patient, d/w family ED course: Patient is a 42-year-old female who presents to the emergency department with burning type chest pain after surgery yesterday. Somewhat pleuritic. No evidence of PE on CT pulmonary angiogram. Normal oxygenation. Pain improved with Dilaudid. Also feels better after GI cocktail. She is very well-appearing , nontoxic. Afebrile. Hemoglobin did drop from 9 to 8, but this is expected after her surgery. Has an appointment with gynecology on Wednesday for repeat evaluation. Ambulating without difficulty and without dizziness throughout the emergency department. Steady gait. Patient counseled regarding signs and symptoms for which I believe and urgent re-evaluation would be necessary. Patient with good understanding of and agreement to plan and is comfortable going home at this time This document was made in part using voice recognition software. While efforts are made to proofread this document, sound alike and grammatical errors may occur. Departure - Departure Disposition: 01 Home, Self Care Clinical Impression: Atypical chest pain Condition: Good Instructions: ED Chest Pain Atypical Unkn Cause Follow-Up: Luann Carrillo DO [Primary Care Provider] - Aiden Wills MD [Provider Admit Priv/Credential] - Within 3 Days Comments: Return if you worsen. This should improve over the next few days. You should have your blood counts rechecked next week. Your blood pressure was elevated today on check in to the emergency department. This does not mean that you have hypertension, it is a common phenomenon to check into the emergency department and have elevated blood pressure. I recommend that you see your primary care physician within the week to have it rechecked when you're feeling better. Discharge Date/Time: 04/25/17 01:43
[2017-04-24] MEDS ORDERED: HYDROmorphone 1 MG/ML SYRINGE IVP STA (23:36)
[2017-04-24] MEDS ORDERED: IOPAMIDOL-300 100 ML VIAL ONE (23:42)
[2017-04-24 23:49] LABS: BASOPHILS # (AUTO) 0.1 10^3/uL (0.0-0.1); BASOPHILS % (AUTO) 0.5 %; EOSINOPHILS # (AUTO) 0.3 10^3/uL (0.0-0.7); EOSINOPHILS % (AUTO) 2.2 %; HCT - HEMATOCRIT 25.3 % (37.0-47.0); LYMPHOCYTES # (AUTO) 2.1 10^3/uL (1.5-3.5); LYMPHOCYTES % (AUTO) 17.7 %; MEAN CORPUSCULAR HGB CONC 31.6 g/dL (32.0-36.0); MEAN CORPUSCULAR VOLUME 75.9 fL (81.0-99.0); MEAN PLATELET VOLUME 7.7 fL (7.9-10.8); MONOCYTES # (AUTO) 0.9 10^3/uL (0.0-1.0); MONOCYTES % (AUTO) 7.9 %; NEUTROPHILS # (AUTO) 8.4 10^3/uL (1.5-6.6); NEUTROPHILS % (AUTO) 71.7 %; RED BLOOD COUNT 3.33 10^6/uL (4.20-5.40); RED CELL DISTRIBUTION WIDTH 15.6 % (12.0-15.0); UNCORRECTED WHITE BLOOD COUNT 11.7 x10^3/uL; WHITE BLOOD COUNT 11.7 x10^3/uL (4.8-10.8)
[2017-04-24] MEDS ORDERED: HYDROmorphone 1 MG/ML SYRINGE ONE (23:52)
[2017-04-25 00:01] LABS: ALBUMIN/GLOBULIN RATIO 0.9 (1.0-2.2); BILIRUBIN,TOTAL < 0.2 mg/dL (0.2-1.0); BUN - BLOOD UREA NITROGEN 17 mg/dL (6-20); CALCIUM 8.5 mg/dL (8.5-10.3); CARBON DIOXIDE - CO2 24 mmol/L (21-32); CHLORIDE 106 mmol/L (101-111); GLUCOSE 149 mg/dL (70-100); LIPASE 36 U/L (22-51); POTASSIUM 3.3 mmol/L (3.5-5.0); SODIUM 137 mmol/L (135-145); TOTAL PROTEIN 6.7 g/dL (6.7-8.2)
[2017-04-25] MEDS ORDERED: SODIUM CHLORIDE 0.9% 1,000 ML IV ONE (00:12)
[2017-04-25] MEDS ORDERED: IOPAMIDOL-300 100 ML VIAL IVP ONE (00:15)
[2017-04-25 00:24] LABS: CREATININE 0.7 mg/dL (0.4-1.0); GFR - MDRD 92 (>89)
--- NOTE | 2017-04-25 00:52 | CT Preliminary Report ---
Exam: CT Chest Angio (PE) IMPRESSION: 1. No evidence for pulmonary emboli. Mildly limited. No acute findings are seen. [facility] SITE ID: [id number]
[2017-04-25] MEDS ORDERED: LIDOCAINE VISCOUS 2% 15 ML UDC MM STA (00:53)
[2017-04-25] MEDS ORDERED: FAMOTIDINE 20 MG TABLET PO STA (00:53)
[2017-04-25] MEDS ORDERED: SUCRALFATE 1 GM/10 ML UDC PO STA (00:53)
[2017-04-25] MEDS ORDERED: MAG HYDROX/AL HYDROX/SIMETH 30 ML UDC PO STA (00:53)
--- NOTE | 2017-04-25 00:55 | CT Report ---
EXAM: CT ANGIOGRAM CHEST EXAM DATE: 04/25/2017 12:24 AM. CLINICAL HISTORY: Chest pain, post DC yesterday. COMPARISON: CT abdomen and pelvis 07/06/2016. TECHNIQUE: Routine helical imaging was performed through the chest in the pulmonary arterial phase. I V Contrast: 80 ML Isovue 300. Reconstructions: Coronal 3-D MIP reconstructions.Sagittal and coronal. In accordance with CT protocol optimization, one or more of the following dose reduction techniques w ere utilized for this exam: automated exposure control, adjustment of mA and/or KV based on patient s ize, or use of iterative reconstructive technique. FINDINGS: Pulmonary Arteries: No evidence for pulmonary emboli. Mild breathing motion artifact limited. Mildly limited due to mildly delayed contrast timing. Mediastinum: No thoracic aortic aneurysm or dissection. Normal heart size. Mildly prominent paratrach eal lymph node measuring 7 mm. Lungs/Pleura: No consolidation, nodules, or edema. No effusions or pneumothorax. Mild breathing motio n artifact limited. Mediastinum: Normal. No cardiac enlargement or adenopathy. Upper abdomen: No acute findings are seen. There appears to be fatty liver. IMPRESSION: 1. No evidence for pulmonary emboli. Mildly limited. No acute findings are seen. [facility] Referring Provider Line: [phone] SITE ID: [id number]
[2017-04-25] MEDS ORDERED: FAMOTIDINE 20 MG TABLET ONE (01:01)
[2017-04-25] MEDS ORDERED: LIDOCAINE VISCOUS 2% 15 ML UDC MM ONE (01:02)
[2017-04-25] MEDS ORDERED: MAG HYDROX/AL HYDROX/SIMETH 30 ML UDC ONE (01:02)
[2017-04-25] MEDS ORDERED: SUCRALFATE 1 GM/10 ML UDC ONE (01:02)
[2017-04-25 01:40] VITALS: BP 157/78
== END 2017-04-25 01:43 | disposition home or self-care (01) ==
LOC: EDUNIT# → ED 23:10 → SUPCPDRO 23:10 → ED 04-25 01:43
DX: R07.89 Other chest pain (principal); Z98.890 Other specified postprocedural states; I10 Essential (primary) hypertension
CPT/HCPCS: 36415; 71275; 80053; 83690; 84484; 85025; 93005; 96374; 99284; 99285; A9270; J1170; Q9967

== ENCOUNTER 2017-04-27 15:15 | Outpatient (CLI) | payer OTHER | END 2017-04-27 15:16 | disposition home or self-care (01) | LOC: LAB 15:15 | PROVIDERS: ATTEND Obstetrics & Gynecology | DX: Z13.0 Encounter for screening for diseases of the blood and blood-forming organs and certain disorders involving the immune mechanism (principal) | CPT/HCPCS: 36415; 85018 ==

== ENCOUNTER 2017-04-28 12:12 | Day surgery (SDC) | payer OTHER ==
--- NOTE | 2017-04-27 17:32 | HISTORY & PHYSICAL EXAMINATION ---
DATE OF ADMISSION: 04/27/2017 DIAGNOSES: 1. Continued menorrhagia despite multiple medical therapies. 2. Recent dilatation and curettage, and hysteroscopy that found progesterone effect without evidence of hyperplasia, dysplasia, or malignancy. 3. Morbid obesity, with 61% BMI. 4. Hypertension. 5. Sleep apnea. 6. Depression. HISTORY OF PRESENT ILLNESS: The patient is a 42-year-old nulligravida, who has had 4 months of menorrhagia punctuated by dysmenorrhea. She was seen in the emergency room on the er, referred from her PCP due to menorrhagia. Reference that detailed history and physical. She under went an uneventful hysteroscopy, and D and C that did not find any endometritis, hyperplasia, or edu gnancy. She was discharged home in good condition. On Wednesday, she returned to the emergency room by a mbulance for chest pain, with a negative workup. Reference Dr. Fuller's notes. EKG and CT scan were n egative. The patient continues to bleed post discharge. She states today, she had passage of large cl ots. Her hemoglobin today was 9.4, while her Wednesday baseline was 8.0. PAST MEDICAL HISTORY: The patient has a history of hypertension and is currently on medication. She t ested negative for diabetes. She is known to have sleep apnea and currently uses a CPAP machine. She reports mild depression and uses citalopram. MEDICATIONS: 1. Citalopram. 2. Unnamed SSRI. 3. Antihypertensive. ALLERGIES: NONE. SOCIAL HISTORY: . 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 Prior smoker, but quit 15 years ago. Occasional al cohol. No drug use. FAMILY HISTORY: Depression in mother, father, and brother. Positive coronary artery disease, with hyp ertension. REVIEW OF SYSTEMS: She feels weak and fatigued. HEENT: Negative. ENDOCRINE: Negative. CARDIAC: Negative. PULMONARY: Negative. GASTROINTESTINAL: Negative. MUSCULOSKELETAL: Mild arthritis pain. PHYSICAL EXAMINATION: GENERAL: The patient is sitting up on the exam table, alert, talkative, and cooperative. VITAL SIGNS: Afebrile. Normotensive. HEENT: EOMI. Nonicteric sclerae. Moist mucous membranes. Good dentition. LUNGS: Clear to auscultation. Distant sounds. HEART: Regular. Grade 2/6 systolic ejection murmur. ABDOMEN: Large pannus. No tenderness. EXTERNAL GENITALIA: No skin lesions, prior exam. Cervix: Deferred to OR. Uterus: Deferred to OR. EXTREMITIES: Mild edema. Some varicosities on the lower extremities. NEUROLOGIC: Grossly intact sensory and motor function. ASSESSMENT: The patient has had prolonged uterine bleeding, without a documented functional lesion, a lthough mild simple hyperplasia at one point was suspected on hysteroscopy. Due to extensive progesto gen therapy, prior surgical tissue displayed progesterone effect. I am very certain there is no malig nant or atypical hyperplasia present. Unfortunately, her bleeding is yet to subside. She does not wan t high-dose hormonal therapy because of the current side effects of bloating and moodiness. I am unce rtain of the cause of this weekend's syncopal episode. Currently, the patient seems well. PLAN: At this point, NovaSure endometrial ablation provides an excellent chance of abating or even ce asing her menstruation. She was cautioned that this will not eliminate her dysmenorrhea. In fact, the re is a possibility of worsening of dysmenorrhea. We discussed the possibility of perforation, bowel burn, continued bleeding, and infection. The patient understands that there is no guarantee of cure. I offered her the opportunity to delay treatment until her evaluation at the [facility] this Wednesday. She rejects it. "I already called and canceled my appointment." JOB #: [id number] EXT JOB #:[id number]
[2017-04-28 12:51] LABS: HCG UR QUAL NEGATIVE
[2017-04-28] MEDS ORDERED: LACTATED RINGERS 1,000 ML IV ONE (12:57)
[2017-04-28] MEDS ORDERED: SCOPOLAMINE PATCH TOP ONE (14:30)
[2017-04-28] MEDS ORDERED: ONDANSETRON 4 MG/2 ML VIAL IVP ONE (16:00)
[2017-04-28] MEDS ORDERED: KETAMINE 500 MG/10 ML VIAL IVP ONE (16:00)
[2017-04-28] MEDS ORDERED: LIDOCAINE-MPF 2% 5 ML VIAL IM ONE (16:00)
[2017-04-28] MEDS ORDERED: GLYCOPYRROLATE 1 MG/5 ML VIAL IVP ONE (16:00)
[2017-04-28] MEDS ORDERED: PROPOFOL 200 MG/20 ML VIAL IVP ONE (16:00)
[2017-04-28] MEDS ORDERED: SUCCINYLCHOLINE 200 MG/10 ML VIAL IVP ONE (16:00)
[2017-04-28] MEDS ORDERED: DEXAMETHASONE 4 MG/ML VIAL IVP ONE (16:00)
[2017-04-28] MEDS ORDERED: MIDAZOLAM 2 MG/2 ML VIAL IVP ONE (16:00)
[2017-04-28] MEDS ORDERED: IBUPROFEN 600 MG TABLET PO ONE (16:51)
[2017-04-28] MEDS ORDERED: HYDROcod/ACETAM 5/325 MG TABLET ONE (16:52)
[2017-04-28] MEDS ORDERED: fentaNYL 100 MCG/2 ML VIAL ONE (17:06)
[2017-04-28 17:43] VITALS: BP 132/80
--- NOTE | 2017-04-29 03:34 | OPERATIVE REPORT ---
DATE OF SURGERY: 04/28/2017 00:00:00 PREOPERATIVE DIAGNOSES 1. Continued menorrhagia despite multiple medical therapies. 2. Recent dilatation and curettage with hysteroscopy without evidence of hyperplasia, dysplasia, or m alignancy. 3. Morbid obesity, body mass index of 60+. 4. Hypertension. 5. Sleep apnea. 6. Depression. POSTOPERATIVE DIAGNOSES 1. Continued menorrhagia despite multiple medical therapies. 2. Recent dilatation and curettage with hysteroscopy without evidence of hyperplasia, dysplasia, or m alignancy. 3. Morbid obesity, body mass index of 60+. 4. Hypertension. 5. Sleep apnea. 6. Depression. PROCEDURES 1. NovaSure endometrial ablation. 2. Hysteroscopy. SURGEON: Aiden Wills MD, FACOG. ANESTHESIA: General, ET tube placed. COMPLICATIONS: None. ESTIMATED BLOOD LOSS: Minimal. DRAINS: None. FINDINGS: Vagina has old clotted blood with clotted blood in the endocervical canal. Endometrial inte rior shows effects of recent D and C. No hyperplasia or suspicion of malignancy is found. Post-treatm ent, estimate that 90-95% of the entire endometrium was treated. This includes the right corneal area . TECHNIQUE: Prior to the procedure, we discussed the risks, benefits, and alternatives. She understand s that the procedure will not necessarily address her severe dysmenorrhea. She also understands that the procedure can cause a great deal of cramping and subsequent pain. All questions were answered. The patient was brought to the operating room and placed in the supine position for administration of general anesthesia. She was uneventfully induced and intubated. She was moved to the low dorsal lith otomy position. She was prepped and draped in the customary sterile fashion. Time out briefing was do ne per protocol. Clamshell speculum was inserted and the cervix identified. Anterior cervical lip was grasped with a s beatriz-toothed tenaculum. The cervix had been previously dilated from recent D and C. The NovaSure daylin suring device was used and the cavity had a length of 7.5 cm. NovaSure was inserted and deployed. Cav ity lip width was 4.3 cm and the NovaSure set to the appropriate power. Pre-ablation test was run and was normal. The NovaSure then was fired and it went through its cycle uneventfully. NovaSure was wit hdrawn and removed. Hysteroscope was then inserted into the uterine cavity, and the cavity examined. There were no functi onal lesions found and good ablative effect documented. Reference photos. At this point, the procedure was terminated. All instruments were removed from the vagina. The anesth esia was uneventfully reversed, and the patient was taken to the recovery room in good condition. The patient at some point we will require reliable contraception or sterilization. She may be a good candidate for Mirena IUD. Discharge and followup instructions were given. She realizes she must report back immediately if she develops foul discharge, abdominal pain, or fever. Followup will be in 2-3 weeks at the [facility]. DISCHARGE MEDICATIONS 1. Motrin 600 q.6h. p.r.n. pain x1 week. 2. The patient already has Canjilon at home. JOB #: [id number] EXT JOB #:[id number]
== END 2017-04-28 12:13 | disposition home or self-care (01) ==
LOC: SDS 12:12
PROVIDERS: ATTEND Obstetrics & Gynecology
PROC: 0U598ZZ Destruction of Uterus, Via Natural or Artificial Opening Endoscopic (ICD-10-PCS; principal; 2017-04-28 13:45)
DX: N92.0 Excessive and frequent menstruation with regular cycle (principal); E66.01 Morbid (severe) obesity due to excess calories; Z68.44 Body mass index [BMI] 60.0-69.9, adult; I10 Essential (primary) hypertension; G47.30 Sleep apnea, unspecified; F32.9 Major depressive disorder, single episode, unspecified; Z87.891 Personal history of nicotine dependence
CPT/HCPCS: 58563; 81025; A9270; J3490; J7120

== ENCOUNTER 2017-05-10 13:14 | Outpatient (CLI) | payer OTHER | END 2017-05-10 13:15 | disposition home or self-care (01) | LOC: SC 13:14 | PROVIDERS: ATTEND Nurse Practitioner Family | DX: G47.33 Obstructive sleep apnea (adult) (pediatric) (principal) | CPT/HCPCS: 99212; 99214 ==

== ENCOUNTER 2017-05-11 15:08 | Outpatient (CLI) | payer OTHER ==
[2017-05-11] MEDS ORDERED: IOPAMIDOL-300 50 ML VIAL ONE (15:17)
[2017-05-11] MEDS ORDERED: IOPAMIDOL-300 100 ML VIAL ONE ×2 (15:17→21:07)
[2017-05-11] MEDS: IOPAMIDOL-300 100 ML VIAL IVP ONE ×2 (21:40→21:42)
[2017-05-11] MEDS ORDERED: IOPAMIDOL-300 50 ML VIAL PO ONE (21:41)
--- NOTE | 2017-05-11 22:20 | CT Preliminary Report ---
Exam: CT Abdomen/Pelvis W/ IMPRESSION: 1. No acute abdominal or pelvic abnormality. 2. With regards to the provided history of diarrhea, there is average amount of formed fecal matter w ithin the colon. No bowel obstruction or colitis. [facility] The call report notification system was initiated by Dr. Padmini Aguilera at 22:14 hrs on 05/11/17. The above findings were discussed with Dr Luann Carrillo by Dr. Padmini Aguilera at 22:18 hrs on 05/11/17. SITE ID: [id number]
--- NOTE | 2017-05-11 22:42 | CT Report ---
EXAM: CT ABDOMEN AND PELVIS EXAM DATE: 05/11/2017 09:19 PM. CLINICAL HISTORY: Abdominal pain, diarrhea. COMPARISONS: Previous ultrasound from 09/25/2016 is not available for direct comparison. Correlation and comparison made with CT 07/06/2016. TECHNIQUE: Routine helical CT imaging was performed through the abdomen and pelvis. IV contrast: 100 mL Isovue 300. Enteric contrast: Water-soluble. Reconstructions: Coronal and sagittal. In accordance with CT protocol optimization, one or more of the following dose reduction techniques w ere utilized for this exam: automated exposure control, adjustment of mA and/or KV based on patient s ize, or use of iterative reconstructive technique. FINDINGS: ABDOMEN: Liver: No significant abnormality. Stomach/Distal Esophagus: No significant abnormality. Gallbladder: No significant abnormality. Bile Ducts: No significant abnormality. Pancreas: No significant abnormality. Spleen: No significant abnormality. Kidneys: No solid appearing lesion. No hydronephrosis. Small low-density focus within the right lower kidney is noted posterolaterally. This is difficult to accurately characterize. Stability from the p rior exam favors a benign etiology. Adrenals: No significant abnormality. Bowel: No obstruction. With regards to provided history of diarrhea, there is average amount of retai carlene fecal matter within the colon. No evidence of a colitis. No bowel obstruction noted. Appendix: Normal. Lymph Nodes: No pathologically enlarged nodes. Vasculature: Normal caliber aorta. Fluid: No significant free fluid. Abdominal Wall: No significant abnormality. Other: No significant abnormality. PELVIS: Uterus and Ovaries: No significant abnormality. Bladder: No significant abnormality. Lymph Nodes: No pathologically enlarged nodes. Fluid: No significant free fluid. Other: Nonspecific subcutaneous venous collaterals noted about the upper anterior thigh bilaterally. No significant evident abnormality of the bilateral common iliac as well as external iliac veins. BONES: No suspicious bony lesions. LOWER CHEST: No significant consolidation or effusion. IMPRESSION: 1. No acute abdominal or pelvic abnormality. 2. With regards to the provided history of diarrhea, there is average amount of formed fecal matter w ithin the colon. No bowel obstruction or colitis. [facility] The call report notification system was initiated by Dr. Padmini Aguilera at 22:14 hrs on 05/11/17. The above findings were discussed with Dr Luann Carrillo by Dr. Padmini Aguilera at 22:18 hrs on 05/11/17. Referring Provider Line: [phone] SITE ID: [id number]
== END 2017-05-11 15:09 | disposition home or self-care (01) ==
LOC: DI 15:08
PROVIDERS: ATTEND Family Medicine
DX: R10.9 Unspecified abdominal pain (principal); R19.7 Diarrhea, unspecified
CPT/HCPCS: 74177; Q9967

== ENCOUNTER 2017-05-11 17:24 | Emergency (ER) | payer OTHER ==
--- NOTE | 2017-05-11 18:27 | ED Physician Documentation ---
PD HPI UPPER EXT INJURY - Stated complaint Stated Complaint: IV Infiltration - Chief complaint Chief Complaint: General - History obtained from History obtained from: Patient - History of Present Illness Location: Left, Wrist Type of injury: Other (some IV contrast dye for CT infiltrated in DI and patient brought over to ED for injection of hyaluronidase per protocol. Having CT done outpatient for abd cramps and diarrhea.) Where injury occurred: Other (in Diagnostic Imaging department) Timing - onset: Today (few minutes ago) Worsened by: Palpating Associated symptoms: Numbness (she feels some numbness in middle fingers, but can move them.). 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 HEENT: Cataracts - Present Medications Home Medications: Ambulatory Orders Medication Instructions Recorded Confirmed Furosemide [Lasix] 40 mg PO DAILY 04/23/17 04/28/17 Potassium Chloride 20 meq PO DAILY 04/23/17 04/28/17 Escitalopram Oxalate 20 mg PO BID 04/28/17 04/28/17 Gabapentin 300 mg PO BID 04/28/17 04/28/17 Iron,Carbonyl/Folic Acid/Mv-Mn 1 tab PO BID 04/28/17 04/28/17 [Active Fe Tablet] Metoprolol Tartrate [Lopressor] 100 mg PO DAILY 04/28/17 04/28/17 Omeprazole/Sodium Bicarbonate 20 mg PO DAILY 04/28/17 04/28/17 [Omeppi 20 mg-1,100 mg Capsule] Topiramate 25 mg PO TID 04/28/17 04/28/17 buPROPion [Wellbutrin Sr] 150 mg PO DAILY 04/28/17 04/28/17 - Allergies Allergies/Adverse Reactions: Allergies Allergy/AdvReac Type Severity Reaction Status Date / Time ketorolac tromethamine * Allergy Itching Verified 04/23/17 12:51 [From Toradol] Sulfa (Sulfonamide Allergy Rash Verified 04/23/17 12:51 Antibiotics) - Social History Does the pt smoke?: No Smoking Status: Never smoker Does the pt drink ETOH?: Yes Does the pt have substance abuse?: No - Immunizations Immunizations are current?: Yes - POLST Patient has POLST: No PD ED PE NORMAL - Vitals Vital signs reviewed: Yes - General General: Alert 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, Well developed/nourished - Derm Derm: Normal color, Warm and dry - Extremities Extremities: Other (left wrist/hand with some swelling dorsally. No swelling volar. Normal color and cap refill in fingers. No bruising. ) Results - Vitals Vitals: Oxygen O2 Source Room air PD MEDICAL DECISION MAKING - ED course Complexity details: considered differential (here from DI to get Hyuloronidase injection after IV infiltration of dye. ), d/w patient Departure - Departure Disposition: 01 Home, Self Care Clinical Impression: Extravasation accident Qualifiers: Encounter type: initial encounter Qualified Code(s): T80.818A - Extravasation of other vesicant agent, initial encounter Condition: Stable Record reviewed to determine appropriate education?: Yes Comments: Cool towels to the hand periodically tonight and tomorrow to reduce swelling. Follow-up with your primary care in the next 2-3 days. Tylenol or ibuprofen if needed for pain. Discharge Date/Time: 05/11/17 21:12
[2017-05-11] MEDS ORDERED: HYALURONIDASE HUMAN RECOMB 150 UNIT/ML VIAL ID ONE (18:41)
[2017-05-11] MEDS ORDERED: HYALURONIDASE HUMAN RECOMB 150 UNIT/ML VIAL ONE (19:17)
[2017-05-11 20:32] VITALS: BP 142/88
[2017-05-11] MEDS ORDERED: SODIUM CHLORIDE FLUSH 0.9% 10 ML SYRINGE IVP ONE (20:49)
[2017-05-11] MEDS ORDERED: DIPHENOX/ATROPINE 2.5/0.025 MG TABLET PO STA (21:03)
[2017-05-11] MEDS ORDERED: IBUPROFEN 600 MG TABLET PO STA (21:03)
[2017-05-11] MEDS ORDERED: ONDANSETRON ODT 4 MG TABLET TL STA (21:03)
[2017-05-11] MEDS ORDERED: HYDROcod/ACETAM 5/325 MG TABLET PO STA (21:03)
[2017-05-11] MEDS ORDERED: HYDROcod/ACETAM 5/325 MG TABLET ONE (21:11)
[2017-05-11] MEDS ORDERED: DIPHENOX/ATROPINE 2.5/0.025 MG TABLET PO ONE (21:11)
[2017-05-11] MEDS ORDERED: ONDANSETRON ODT 4 MG TABLET ONE (21:11)
[2017-05-11] MEDS ORDERED: IBUPROFEN 600 MG TABLET PO ONE (21:12)
== END 2017-05-11 21:12 | disposition home or self-care (01) ==
LOC: ED 17:24
DX: T80.818A Extravasation of other vesicant agent, initial encounter (principal); R20.0 Anesthesia of skin; R10.9 Unspecified abdominal pain; R19.7 Diarrhea, unspecified; I10 Essential (primary) hypertension
CPT/HCPCS: 74177; 99282; 99283; A9270; Q0162; Q9967

== ENCOUNTER 2017-05-13 01:44 | Emergency (ER) | payer OTHER ==
[2017-05-13 01:56] VITALS: BP 136/69
--- NOTE | 2017-05-13 02:46 | ED Physician Documentation ---
PD HPI ABD PAIN - Stated complaint Stated Complaint: ABD PX,DIARRHEA - Chief complaint Chief Complaint: Abd Pain - History obtained from History obtained from: Patient - History of Present Illness Timing - onset: How many weeks ago (2) Timing - details: Gradual onset, Still present Quality: Cramping, Aching Location: Epigastric Worsened by: Eating, Moving, Palpation Associated symptoms: Nausea, Diarrhea. No: Fever, Vomiting, Constipation Similar symptoms before: Work up / diagnostics, Treatment Recently seen: Emergency Dept - Additional information Additional information: Patient is a 42 year old female coming to the emergency department for abdominal pain, diarrhea and nausea. Patient has been to the emergency department and her pmd multiple times for the complaint. all of the diagnostics have been negative, including a CT done 2 days ago. Patient states that she still has symptoms so she came to the emergency department for evaluation. Review of Systems Constitutional: denies: Fever, Chills Ears: denies: Ear pain, Drainage/discharge Nose: denies: Rhinorrhea / runny nose, Congestion Throat: reports: Sore throat Cardiac: denies: Chest pain / pressure, Palpitations, Calf pain Respiratory: reports: Cough. denies: Wheezing GI: reports: Abdominal Pain, Nausea, Diarrhea. denies: Vomiting : denies: Dysuria, Hesitancy, Hematuria, Vaginal bleeding Skin: denies: Rash, Lesions Musculoskeletal: reports: Back pain Neurologic: reports: Generalized weakness. 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 HEENT: Cataracts - Present Medications Home Medications: Ambulatory Orders Medication Instructions Recorded Confirmed Furosemide [Lasix] 40 mg PO DAILY 04/23/17 04/28/17 Potassium Chloride 20 meq PO DAILY 04/23/17 04/28/17 Escitalopram Oxalate 20 mg PO BID 04/28/17 04/28/17 Gabapentin 300 mg PO BID 04/28/17 04/28/17 Iron,Carbonyl/Folic Acid/Mv-Mn 1 tab PO BID 04/28/17 04/28/17 [Active Fe Tablet] Metoprolol Tartrate [Lopressor] 100 mg PO DAILY 04/28/17 04/28/17 Omeprazole/Sodium Bicarbonate 20 mg PO DAILY 04/28/17 04/28/17 [Omeppi 20 mg-1,100 mg Capsule] Topiramate 25 mg PO TID 04/28/17 04/28/17 buPROPion [Wellbutrin Sr] 150 mg PO DAILY 04/28/17 04/28/17 - Allergies Allergies/Adverse Reactions: Allergies Allergy/AdvReac Type Severity Reaction Status Date / Time ketorolac tromethamine * Allergy Itching Verified 04/23/17 12:51 [From Toradol] Sulfa (Sulfonamide Allergy Rash Verified 04/23/17 12:51 Antibiotics) - Social History Does the pt smoke?: No Smoking Status: Never smoker Does the pt drink ETOH?: Yes Does the pt have substance abuse?: No - Immunizations Immunizations are current?: Yes - POLST Patient has POLST: No PD ED PE NORMAL - Vitals Vital signs reviewed: Yes - General General: Alert 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 - HEENT HEENT: Atraumatic, PERRL - Neck Neck: Supple, no meningeal sign - Cardiac Cardiac: RRR, No murmur - Respiratory Respiratory: No respiratory distress, Clear bilaterally - Abdomen Abdomen: Soft - Derm Derm: Normal color, Warm and dry, No rash - Extremities Extremities: No deformity, Normal ROM s pain, No edema - Neuro Neuro: Alert 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, No motor deficit, No sensory deficit, Normal speech PD ED PE EXPANDED - General General: Alert, Other (obese) - Abdomen Abdomen: Tender to palpation, Epigastric. No: Rebound, Guarding - Psych Psych: Tearful Results - Vitals Vitals: Vital Signs - 24 hr 05/13/17 01:48 Temperature 36.8 C Heart Rate 92 Respiratory 17 Rate Blood Pressure 136/69 H O2 Saturation 99 Oxygen O2 Source Room air - Labs Labs: Laboratory Tests 05/13/17 05/13/17 00:25 02:20 WBC 11.7 H RBC 3.97 L Hgb 9.3 L Hct 29.7 L MCV 74.8 L MCH 23.4 L MCHC 31.3 L RDW 16.7 H Plt Count 302 MPV 8.3 Neut # 8.9 H Lymph # 1.4 L Donley # 0.9 Eos # 0.4 Baso # 0.1 Absolute Nucleated RBC 0.00 Nucleated RBC % 0.0 Sodium 136 Potassium 3.8 Chloride 105 Carbon Dioxide 25 Anion Gap 6.0 BUN 11 Creatinine 0.6 Estimated GFR (MDRD) 110 Glucose 170 H Calcium 8.6 Total Bilirubin 0.3 AST 20 ALT 27 Alkaline Phosphatase 91 Total Protein 7.3 Albumin 3.5 Globulin 3.8 Albumin/Globulin Ratio 0.9 L Lipase 37 PD MEDICAL DECISION MAKING - ED course Complexity details: reviewed old records, reviewed results, re-evaluated patient , considered differential, d/w patient ED course: Patient was seen and examined at bedside. labs were drawn and urine was collected. Patient's previous records were reviewed, and all of her diagnostics had been within normal limits. patient's diagnostics today remained normal. Patient had no bowel movements/diarrhea while in the ED, making C-diff an unlikely diagnosis. Patient required no further inpatient work up and was stable for discharge with outpatient follow up. Departure - Departure Disposition: 01 Home, Self Care Clinical Impression: Diarrhea Condition: Good Instructions: ED Abdominal Pain Unkn Cause Follow-Up: primary,care provider [Other] - Within 1 week Comments: Your diagnostics today were within normal limits. there were no electrolyte abnormalities. I would start taking yogurt/probiotics since you are on antibiotics. It is difficult to say what is causing your pain. You should continue to work with your doctor in trying to find a source. You should ask for a GI referral for further evaluation and care.
[2017-05-13 02:48] LABS: BASOPHILS # (AUTO) 0.1 10^3/uL (0.0-0.1); BASOPHILS % (AUTO) 0.8 %; EOSINOPHILS # (AUTO) 0.4 10^3/uL (0.0-0.7); EOSINOPHILS % (AUTO) 3.7 %; HCT - HEMATOCRIT 29.7 % (37.0-47.0); HGB - HEMOGLOBIN 9.3 g/dL (12.0-16.0); LYMPHOCYTES # (AUTO) 1.4 10^3/uL (1.5-3.5); LYMPHOCYTES % (AUTO) 11.8 %; MEAN CORPUSCULAR HEMOGLOBIN 23.4 pg (27.0-31.0); MEAN CORPUSCULAR HGB CONC 31.3 g/dL (32.0-36.0); MEAN CORPUSCULAR VOLUME 74.8 fL (81.0-99.0); MEAN PLATELET VOLUME 8.3 fL (7.9-10.8); MONOCYTES # (AUTO) 0.9 10^3/uL (0.0-1.0); MONOCYTES % (AUTO) 7.3 %; NEUTROPHILS # (AUTO) 8.9 10^3/uL (1.5-6.6); NEUTROPHILS % (AUTO) 76.4 %; RED BLOOD COUNT 3.97 10^6/uL (4.20-5.40); RED CELL DISTRIBUTION WIDTH 16.7 % (12.0-15.0); UNCORRECTED WHITE BLOOD COUNT 11.7 x10^3/uL; WHITE BLOOD COUNT 11.7 x10^3/uL (4.8-10.8)
[2017-05-13 03:00] LABS: ALBUMIN/GLOBULIN RATIO 0.9 (1.0-2.2); BILIRUBIN,TOTAL 0.3 mg/dL (0.2-1.0); CALCIUM 8.6 mg/dL (8.5-10.3); CREATININE 0.6 mg/dL (0.4-1.0); POTASSIUM 3.8 mmol/L (3.5-5.0); TOTAL PROTEIN 7.3 g/dL (6.7-8.2)
== END 2017-05-13 03:45 | disposition home or self-care (01) ==
LOC: ED 01:44
DX: R10.13 Epigastric pain (principal); I10 Essential (primary) hypertension; R19.7 Diarrhea, unspecified
CPT/HCPCS: 36415; 80053; 83690; 85025; 99283

== ENCOUNTER 2017-05-20 14:10 | Outpatient (CLI) | payer OTHER | END 2017-05-20 14:11 | disposition home or self-care (01) | LOC: LAB.R 14:10 | PROVIDERS: ATTEND Family Medicine | DX: R31.9 Hematuria, unspecified (principal) | CPT/HCPCS: 87086 ==

== ENCOUNTER 2017-05-20 14:10 | Outpatient (CLI) | payer OTHER | END 2017-05-20 14:11 | disposition home or self-care (01) | LOC: LAB.R 14:10 | PROVIDERS: ATTEND Family Medicine | DX: R19.7 Diarrhea, unspecified (principal); R31.9 Hematuria, unspecified | CPT/HCPCS: 83630; 87045; 87046; 87086; 87177; 87209; 87493 ==

== ENCOUNTER 2017-05-28 08:58 | Emergency (ER) | payer OTHER ==
[2017-05-28 09:54] LABS: BILIRUBIN,URINE NEGATIVE (NEGATIVE)
[2017-05-28 09:58] LABS: UA CHARGE (STRIP ONLY) YES; UR CULTURE IF IND NOT INDICATED
[2017-05-28 10:01] LABS: HCT - HEMATOCRIT 31.3 % (37.0-47.0); HGB - HEMOGLOBIN 9.6 g/dL (12.0-16.0); MEAN CORPUSCULAR HEMOGLOBIN 21.9 pg (27.0-31.0); MEAN CORPUSCULAR HGB CONC 30.8 g/dL (32.0-36.0); RED BLOOD COUNT 4.41 10^6/uL (4.20-5.40); RED CELL DISTRIBUTION WIDTH 17.6 % (12.0-15.0); WHITE BLOOD COUNT 12.7 x10^3/uL (4.8-10.8)
[2017-05-28 10:10] LABS: ALBUMIN/GLOBULIN RATIO 0.9 (1.0-2.2); BILIRUBIN,TOTAL 0.3 mg/dL (0.2-1.0); CALCIUM 8.8 mg/dL (8.5-10.3); CREATININE 0.7 mg/dL (0.4-1.0); TOTAL PROTEIN 7.5 g/dL (6.7-8.2)
[2017-05-28] MEDS ORDERED: PROMETHAZINE INJ 12.5 MG in SODIUM CHLORIDE 0.9% 50 ML IV STA (11:11)
[2017-05-28] MEDS ORDERED: ACETAMINOPHEN 1,000 MG/100 ML 100 ML IV STA (11:12)
[2017-05-28] MEDS ORDERED: PROMETHAZINE 25 MG/1 ML VIAL ONE (11:49)
[2017-05-28 12:03] LABS: HCG UR QUAL NEGATIVE
--- NOTE | 2017-05-28 14:44 | ED Physician Documentation ---
PD HPI ABD PAIN - Stated complaint Stated Complaint: ABD PX/SOA - Chief complaint Chief Complaint: Abd Pain - History obtained from History obtained from: Patient - History of Present Illness Timing - onset: How many weeks ago (3) Timing - duration: Weeks (3) Timing - details: Still present, Waxing and waning Quality: Cramping Location: Other (Across lower abdomen.) Associated symptoms: Nausea, Diarrhea, Dysuria. No: Fever, Vomiting Recently seen: Clinic, Emergency Dept - Additional information Additional information: The patient is a 42-year-old female who presents with lower abdominal pain that has been waxing and waning for the past 3 weeks. She has had loose diarrhea stool and nausea. She denies vomiting. She denies fever but has felt chilled, and has been fatigued. She reports dysuria. She also reports nonproductive cough and sinus drainage. Recent medical history is significant for emergent D&C 6 weeks ago for profuse vaginal bleeding. She has been on iron supplementation since that time. She has been seen in the emergency department twice in the past 3 weeks. On she underwent CT scan of the abdomen and pelvis, which was nonrevealing. She has also been followed by her primary physician, who treated her with metronidazole for possible C. difficile. The C. difficile PCR subsequently came back negative. The patient has been referred to gastroenterology for evaluation, but has not yet gotten an appointment. She is distraught because each time she comes to the emergency Department or sees her primary physician, she gets sent home without a specific diagnosis, and her symptoms are persisting. Review of Systems Constitutional: reports: Chills, Fatigue. denies: Fever Ears: denies: Tinnitus/ringing Nose: denies: Congestion Throat: denies: Sore throat Cardiac: denies: Chest pain / pressure Respiratory: reports: Cough. denies: Dyspnea GI: reports: Abdominal Pain, Nausea, Diarrhea. denies: Vomiting : reports: Dysuria. denies: Vaginal bleeding Skin: denies: Rash Musculoskeletal: denies: Back pain, Extremity pain Neurologic: denies: Focal weakness, Numbness, Headache PD PAST MEDICAL HISTORY - Past Medical History Cardiovascular: Hypertension, Angina Respiratory: Shortness of breath, Sleep apnea, CPAP use Neuro: None Endocrine/Autoimmune: None GI: GERD : Chronic bladder infection, Kidney stones HEENT: None Psych: Depression Musculoskeletal: Osteoarthritis, Chronic back pain Derm: None - Past Surgical History Past Surgical History: Yes /[employer]: Endometrial ablation, Dilation and currettage HEENT: Cataracts - Present Medications Home Medications: Ambulatory Orders Medication Instructions Recorded Confirmed Escitalopram Oxalate 20 mg PO BID 04/28/17 05/28/17 Gabapentin 300 mg PO BID 04/28/17 05/28/17 Iron,Carbonyl/Folic Acid/Mv-Mn 1 tab PO BID 04/28/17 05/28/17 [Active Fe Tablet] Metoprolol Tartrate [Lopressor] 100 mg PO DAILY 04/28/17 05/28/17 Omeprazole/Sodium Bicarbonate 20 mg PO DAILY 04/28/17 05/28/17 [Omeppi 20 mg-1,100 mg Capsule] Topiramate 25 mg PO TID 04/28/17 05/28/17 buPROPion [Wellbutrin Sr] 150 mg PO DAILY 04/28/17 05/28/17 - Allergies Allergies/Adverse Reactions: Allergies Allergy/AdvReac Type Severity Reaction Status Date / Time ketorolac tromethamine * Allergy Itching Verified 05/28/17 09:12 [From Toradol] Sulfa (Sulfonamide Allergy Rash Verified 05/28/17 09:12 Antibiotics) - Social History Does the pt smoke?: No Smoking Status: Never smoker Does the pt drink ETOH?: Yes Does the pt have substance abuse?: No - Immunizations Immunizations are current?: Yes - POLST Patient has POLST: No PD ED PE NORMAL - Vitals Vital signs reviewed: Yes (hypertensive) - General General: Alert 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, Well developed/nourished, Other (Morbidly obese.) - HEENT HEENT: Atraumatic, Pharynx benign - Neck Neck: No adenopathy, No JVD - Cardiac Cardiac: RRR, No murmur - Respiratory Respiratory: No respiratory distress, Clear bilaterally - Abdomen Abdomen: Normal bowel sounds, Soft, Non tender, Other (No focal tenderness to palpation, and no rebound or guarding.) - Rectal Rectal: Other (Rectal exam reveals light brown, heme-negative stool.) - Back Back: No CVA TTP - Derm Derm: No rash - Extremities Extremities: No edema, No calf tenderness / cord - Neuro Neuro: Alert 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, No motor deficit, Normal speech Results - Vitals Vitals: Oxygen O2 Source Room air - Labs Labs: Laboratory Tests 05/28/17 05/28/17 05/28/17 09:30 09:30 09:30 WBC 12.7 H RBC 4.41 Hgb 9.6 L Hct 31.3 L MCV 71.0 L MCH 21.9 L MCHC 30.8 L RDW 17.6 H Plt Count 327 MPV 8.0 Sodium 135 Potassium 4.0 Chloride 101 Carbon Dioxide 25 Anion Gap 9.0 BUN 9 Creatinine 0.7 Estimated GFR (MDRD) 92 Glucose 140 H Calcium 8.8 Total Bilirubin 0.3 AST 20 ALT 28 Alkaline Phosphatase 86 Total Protein 7.5 Albumin 3.6 Globulin 3.9 Albumin/Globulin Ratio 0.9 L Lipase 28 Urine Color YELLOW Urine Clarity CLEAR Urine pH 7.0 Ur Specific [place] <=1.005 Urine Protein NEGATIVE Urine Glucose (UA) NEGATIVE Urine Ketones NEGATIVE Urine Occult Blood TRACE-LYSE Urine Nitrite NEGATIVE Urine Bilirubin NEGATIVE Urine Urobilinogen 0.2 (NORMAL) Ur Leukocyte Esterase NEGATIVE Ur Microscopic Review NOT INDICATED Urine Culture Comments NOT INDICATED Urine HCG, Qual 05/28/17 09:30 WBC RBC Hgb Hct MCV MCH MCHC RDW Plt Count MPV Sodium Potassium Chloride Carbon Dioxide Anion Gap BUN Creatinine Estimated GFR (MDRD) Glucose Calcium Total Bilirubin AST ALT Alkaline Phosphatase Total Protein Albumin Globulin Albumin/Globulin Ratio Lipase Urine Color Urine Clarity Urine pH Ur Specific [place] <1.005 Urine Protein Urine Glucose (UA) Urine Ketones Urine Occult Blood Urine Nitrite Urine Bilirubin Urine Urobilinogen Ur Leukocyte Esterase Ur Microscopic Review Urine Culture Comments Urine HCG, Qual NEGATIVE PD MEDICAL DECISION MAKING - ED course Complexity details: reviewed old records, reviewed results, re-evaluated patient , considered differential, d/w patient, d/w PMD ED course: The patient's presentation remains puzzling. Despite her complaint of diarrhea of 3 weeks duration, she had no diarrhea during a many hour stay in the emergency department. Her CBC reveals a mildly elevated white count of 12.7, which is similar to her previous lab results. Her hemoglobin is 9.6, which is slightly better than her previous hemoglobin of 9.3. Chemistry panel is unremarkable, and urinalysis is negative. Her fatigue may be related to her anemia, which has been improving while on iron supplementation. The cause of her abdominal discomfort and persistent diarrhea is unclear. Her C. difficile PCR done in the clinic was negative. She may have a viral gastroenteritis causing her constellation of symptoms, but it has been lasting longer than would be expected. Iron supplementation normally results in constipation rather than diarrhea. I discussed her presentation with DEMETRICE Iglesias who is taking call for Dr. Carrillo. We discussed the possibility of at least temporarily reducing the iron supplementation. When I discussed this with the patient however we came to the conclusion that promoting red blood cell production is more important in trying to overcome the patient's feeling of fatigue. At the time of discharge the patient becomes tearful at not having answers to explain her condition. I encouraged her to follow up with the cpht as per Dr. Carrillo's referral. I discussed with her potentially worrisome signs or symptoms that should prompt reevaluation in the emergency department. Departure - Departure Disposition: 01 Home, Self Care Clinical Impression: Abdominal pain Qualifiers: Abdominal location: generalized Qualified Code(s): R10.84 - Generalized abdominal pain Diarrhea Qualifiers: Diarrhea type: unspecified type Qualified Code(s): R19.7 - Diarrhea, unspecified Anemia Qualifiers: Anemia type: unspecified type Qualified Code(s): D64.9 - Anemia, unspecified Condition: Stable Instructions: ED Abdominal Pain Unkn Cause, ED Diet Vomiting Diarrhea Follow-Up: Luann Carrillo DO [Primary Care Provider] - Comments: Drink plenty of fluids. Continue antinausea medication as previously prescribed. Followup with your primary physician regarding gastroenterology referral. Return to the emergency department if you develop increasing abdominal pain, persistent vomiting, or otherwise worsening symptoms. Discharge Date/Time: 05/28/17 14:57
[2017-05-28 14:53] VITALS: BP 134/87
== END 2017-05-28 14:57 | disposition home or self-care (01) ==
LOC: ED 08:58
DX: D64.9 Anemia, unspecified (principal); R10.30 Lower abdominal pain, unspecified; R19.7 Diarrhea, unspecified; I10 Essential (primary) hypertension; I20.9 Angina pectoris, unspecified; K21.9 Gastro-esophageal reflux disease without esophagitis; G47.30 Sleep apnea, unspecified; M19.90 Unspecified osteoarthritis, unspecified site
CPT/HCPCS: 36415; 80053; 81003; 81025; 83690; 85027; 96365; 96367; 99283; 99284; J7040; 81001; 85025; 87086

== ENCOUNTER 2017-06-02 14:49 | Outpatient (CLI) | payer OTHER ==
[2017-06-02 18:56] LABS: BASOPHILS # (AUTO) 0.1 10^3/uL (0.0-0.1); BASOPHILS % (AUTO) 0.9 %; EOSINOPHILS # (AUTO) 0.4 10^3/uL (0.0-0.7); EOSINOPHILS % (AUTO) 2.6 %; HCT - HEMATOCRIT 33.6 % (37.0-47.0); HGB - HEMOGLOBIN 10.2 g/dL (12.0-16.0); LYMPHOCYTES # (AUTO) 1.9 10^3/uL (1.5-3.5); LYMPHOCYTES % (AUTO) 12.9 %; MEAN CORPUSCULAR HEMOGLOBIN 21.8 pg (27.0-31.0); MEAN CORPUSCULAR HGB CONC 30.4 g/dL (32.0-36.0); MEAN CORPUSCULAR VOLUME 71.8 fL (81.0-99.0); MEAN PLATELET VOLUME 8.7 fL (7.9-10.8); MONOCYTES # (AUTO) 1.3 10^3/uL (0.0-1.0); MONOCYTES % (AUTO) 8.5 %; NEUTROPHILS # (AUTO) 11.4 10^3/uL (1.5-6.6); NEUTROPHILS % (AUTO) 75.1 %; RED BLOOD COUNT 4.68 10^6/uL (4.20-5.40); RED CELL DISTRIBUTION WIDTH 17.7 % (12.0-15.0); UNCORRECTED WHITE BLOOD COUNT 15.1 x10^3/uL; WHITE BLOOD COUNT 15.1 x10^3/uL (4.8-10.8)
[2017-06-02 19:48] LABS: H. PYLORI IGG ANTIBODY Negative (Negative); HPYLORI NEG QC Negative (Negative); HPYLORI POS QC POSITIVE (Positive)
== END 2017-06-02 14:50 | disposition home or self-care (01) ==
LOC: LAB.WCP 14:49
PROVIDERS: ATTEND Family Medicine
DX: R10.13 Epigastric pain (principal)
CPT/HCPCS: 36415; 83690; 85025; 87339

== ENCOUNTER 2017-06-09 08:00 | Outpatient (CLI) | payer OTHER | END 2017-06-09 23:59 | disposition home or self-care (01) | LOC: LAB.R 08:00 | PROVIDERS: ATTEND Obstetrics & Gynecology | DX: N89.8 Other specified noninflammatory disorders of vagina (principal) | CPT/HCPCS: 87480; 87491; 87510; 87591; 87660 ==

== ENCOUNTER 2017-06-30 09:02 | Outpatient (CLI) | payer OTHER ==
[2017-06-30] MEDS ORDERED: SINCALIDE 5 MCG VIAL ONE (09:56)
--- NOTE | 2017-06-30 13:28 | Nuclear Medicine Report ---
EXAM: HEPATOBILIARY SCAN WITH CCK/KINEVAC ADMINISTRATION EXAM DATE: 06/30/2017 01:01 PM. CLINICAL HISTORY: DIARRHEA, ABDOMINAL PAIN, EPIGASTRIC, LEUKOCYTOSIS. COMPARISON: CT 05/11/2017. TECHNIQUE: Following the intravenous administration of 5.2 mCi of Tc99m Mebrofenin, a hepatobiliary s can was done centered on the liver and gallbladder in multiple sequential images and projections. Following the intravenous administration of 3.1 mcg of CCK/ Kinevac over the course of approximately 60 minutes, dynamic imaging was done and the gallbladder ejection fraction was calculated. FINDINGS: Normal extraction of tracer from the blood pool indicating normal hepatocellular function. The liver size and shape is grossly within normal limits. There is activity visualized within the bile ducts, gallbladder, and small bowel within the first van r. With CCK administration, the gallbladder demonstrates an effective contraction. The gallbladder eject ion fraction is calculated to be 97%, well above the lower limit of normal of 38% for a 60-minute inj ection. No evidence of enteric reflux into the stomach. No significant collection of tracer remaining in the common bile duct by the end of the study. IMPRESSION: 1. Patent cystic duct. 2. Patent common bile duct. 3. Negative for acute or chronic cholecystitis. 4. No enterogastric bile reflux. 5. Normal gallbladder ejection fraction of 97%. [facility] Referring Provider Line: [phone] SITE ID: [id number]
== END 2017-06-30 09:03 | disposition home or self-care (01) ==
LOC: DI 09:02
PROVIDERS: ATTEND Family Medicine
DX: R10.13 Epigastric pain (principal); R19.7 Diarrhea, unspecified; D72.829 Elevated white blood cell count, unspecified
CPT/HCPCS: 78227; A9537

== ENCOUNTER 2017-09-13 16:55 | Outpatient (CLI) | payer OTHER ==
[2017-09-13 20:03] LABS: BASOPHILS # (AUTO) 0.1 10^3/uL (0.0-0.1); BASOPHILS % (AUTO) 1.1 %; EOSINOPHILS # (AUTO) 0.6 10^3/uL (0.0-0.7); EOSINOPHILS % (AUTO) 4.2 %; HGB - HEMOGLOBIN 9.3 g/dL (12.0-16.0); LYMPHOCYTES # (AUTO) 1.7 10^3/uL (1.5-3.5); LYMPHOCYTES % (AUTO) 12.7 %; MEAN CORPUSCULAR HEMOGLOBIN 19.9 pg (27.0-31.0); MEAN CORPUSCULAR HGB CONC 29.9 g/dL (32.0-36.0); MEAN CORPUSCULAR VOLUME 66.5 fL (81.0-99.0); MEAN PLATELET VOLUME 8.4 fL (7.9-10.8); MONOCYTES # (AUTO) 1.1 10^3/uL (0.0-1.0); MONOCYTES % (AUTO) 7.9 %; NEUTROPHILS # (AUTO) 10.1 10^3/uL (1.5-6.6); NEUTROPHILS % (AUTO) 74.1 %; PLT - PLATELET COUNT 371 10^3/uL (130-450); RED BLOOD COUNT 4.65 10^6/uL (4.20-5.40); WHITE BLOOD COUNT 13.7 x10^3/uL (4.8-10.8)
[2017-09-13 20:13] LABS: ALBUMIN 3.8 g/dL (3.2-5.5); BILIRUBIN,TOTAL 0.5 mg/dL (0.2-1.0); CALCIUM 8.7 mg/dL (8.5-10.3); CREATININE 0.8 mg/dL (0.4-1.0); TOTAL PROTEIN 7.8 g/dL (6.7-8.2)
[2017-09-13 22:26] LABS: PLATELET ESTIMATE, MANUAL NORMAL (130-450,000) (NORMAL); PLATELET MORPHOLOGY NORMAL APPEARANCE (NORMAL)
== END 2017-09-13 16:56 | disposition home or self-care (01) ==
LOC: LAB.WCP 16:55
PROVIDERS: ATTEND Family Medicine
DX: R60.9 Edema, unspecified (principal); D50.9 Iron deficiency anemia, unspecified
CPT/HCPCS: 36415; 80053; 85025

== ENCOUNTER 2017-10-11 08:00 | Outpatient (CLI) | payer OTHER ==
[2017-10-11 13:17] LABS: BASOPHILS # (AUTO) 0.1 10^3/uL (0.0-0.1); BASOPHILS % (AUTO) 0.9 %; EOSINOPHILS # (AUTO) 0.5 10^3/uL (0.0-0.7); EOSINOPHILS % (AUTO) 4.8 %; HGB - HEMOGLOBIN 10.6 g/dL (12.0-16.0); LYMPHOCYTES # (AUTO) 1.2 10^3/uL (1.5-3.5); LYMPHOCYTES % (AUTO) 11.8 %; MEAN CORPUSCULAR HGB CONC 30.9 g/dL (32.0-36.0); MEAN CORPUSCULAR VOLUME 71.1 fL (81.0-99.0); MEAN PLATELET VOLUME 8.5 fL (7.9-10.8); MONOCYTES # (AUTO) 0.7 10^3/uL (0.0-1.0); MONOCYTES % (AUTO) 6.4 %; NEUTROPHILS # (AUTO) 7.8 10^3/uL (1.5-6.6); NEUTROPHILS % (AUTO) 76.1 %; PLT - PLATELET COUNT 351 10^3/uL (130-450); RED BLOOD COUNT 4.82 10^6/uL (4.20-5.40); WHITE BLOOD COUNT 10.2 x10^3/uL (4.8-10.8)
[2017-10-11 13:29] LABS: PLATELET ESTIMATE, MANUAL NORMAL (130-450,000) (NORMAL); PLATELET MORPHOLOGY NORMAL APPEARANCE (NORMAL)
[2017-10-11 13:31] LABS: FERRITIN 23.8 ng/mL (11.0-306.8)
[2017-10-11 13:35] LABS: FOLATE 15.98 ng/mL (5.90 - >24.8)
== END 2017-10-11 08:01 | disposition home or self-care (01) ==
LOC: LAB.WCP 08:00
PROVIDERS: ATTEND Family Medicine
DX: D50.9 Iron deficiency anemia, unspecified (principal)
CPT/HCPCS: 36415; 82607; 82728; 82746; 85025

== ENCOUNTER 2017-11-08 19:45 | Outpatient (CLI) | payer OTHER | END 2017-11-08 19:46 | disposition critical access hospital (66) | LOC: EMS 19:45 | PROVIDERS: ATTEND Surgery | DX: R53.81 Other malaise (principal); M25.512 Pain in left shoulder; M25.511 Pain in right shoulder | CPT/HCPCS: A0425; A0427 ==

== ENCOUNTER 2017-11-08 20:07 | Emergency (ER) | payer OTHER ==
[2017-11-08] MEDS ORDERED: SODIUM CHLORIDE 0.9% 1,000 ML IV ONE (21:16)
[2017-11-08] MEDS ORDERED: ONDANSETRON 4 MG/2 ML VIAL IVP STA (21:16)
[2017-11-08 21:37] LABS: VBG BASE EXCESS 5.2 mmol/L (-2 - +2); VBG PCO2 47.9 mmHg (41-51); VBG PH 7.422 (7.31-7.41); VBG PO2 44.6 mmHg (25-47)
[2017-11-08 21:44] LABS: BASOPHILS # (AUTO) 0.1 10^3/uL (0.0-0.1); BASOPHILS % (AUTO) 0.6 %; EOSINOPHILS # (AUTO) 0.4 10^3/uL (0.0-0.7); EOSINOPHILS % (AUTO) 3.4 %; HGB - HEMOGLOBIN 11.3 g/dL (12.0-16.0); LYMPHOCYTES # (AUTO) 1.2 10^3/uL (1.5-3.5); LYMPHOCYTES % (AUTO) 9.6 %; MEAN CORPUSCULAR HEMOGLOBIN 22.7 pg (27.0-31.0); MEAN CORPUSCULAR HGB CONC 30.9 g/dL (32.0-36.0); MEAN CORPUSCULAR VOLUME 73.4 fL (81.0-99.0); MEAN PLATELET VOLUME 7.9 fL (7.9-10.8); MONOCYTES # (AUTO) 0.8 10^3/uL (0.0-1.0); MONOCYTES % (AUTO) 6.3 %; NEUTROPHILS # (AUTO) 9.7 10^3/uL (1.5-6.6); NEUTROPHILS % (AUTO) 80.1 %; PLT - PLATELET COUNT 324 10^3/uL (130-450); RED BLOOD COUNT 4.96 10^6/uL (4.20-5.40); RED CELL DISTRIBUTION WIDTH 22.5 % (12.0-15.0); WHITE BLOOD COUNT 12.2 x10^3/uL (4.8-10.8)
[2017-11-08 21:45] LABS: ALBUMIN 3.4 g/dL (3.2-5.5); ALBUMIN/GLOBULIN RATIO 0.8 (1.0-2.2); BILIRUBIN,TOTAL 0.2 mg/dL (0.2-1.0); CALCIUM 8.2 mg/dL (8.5-10.3); CREATININE 0.6 mg/dL (0.4-1.0); TOTAL PROTEIN 7.5 g/dL (6.7-8.2)
[2017-11-08 21:49] LABS: BILIRUBIN,URINE NEGATIVE (NEGATIVE); GLUCOSE, URINE (UA) NEGATIVE (NEGATIVE); KETONES,URINE (UA) NEGATIVE (NEGATIVE); LEUKOCYTE ESTERASE, URINE NEGATIVE (NEGATIVE); NITRITE,URINE NEGATIVE (NEGATIVE); OCCULT BLOOD,URINE NEGATIVE (NEGATIVE); PROTEIN,URINE NEGATIVE (NEGATIVE); UROBILINOGEN,URINE 0.2 (NORMAL) E.U./dL (NORMAL)
[2017-11-08 21:57] LABS: CLARITY,URINE CLEAR (CLEAR)
[2017-11-08 21:59] LABS: PLATELET ESTIMATE, MANUAL NORMAL (130-450,000) (NORMAL); PLATELET MORPHOLOGY NORMAL APPEARANCE (NORMAL)
[2017-11-08 22:26] VITALS: BP 154/94
--- NOTE | 2017-11-08 22:34 | ED Physician Documentation ---
History of Present Illness - Stated complaint Stated Complaint: MALAISE, TIGHT SHOULDER, HX ANEMIA - Chief complaint Chief Complaint: Neuro - History obtained from History obtained from: Patient, EMS - History of Present Illness Timing: Today - Additonal information Additional information: patient is a 42 year old female with multiple co moribidities who is presenting to the emergency department for nausea, diarrhea, generalized weakness and right shoulder pain. Patient states that she was at work earlier this evening and she was not feeling well. Patient went home early from work and states that she felt nauseated and had an episode of diarrhea. Patient had some right sided shoulder pain as well. patient and friend state that patient normally has high wbcs and anemia. Patient states that the shoulder pain was there this morning when she woke up. Review of Systems Constitutional: reports: Fever, Chills, Myalgias Eyes: reports: Reviewed and negative Ears: reports: Reviewed and negative Nose: denies: Rhinorrhea / runny nose, Congestion Throat: reports: Reviewed and negative Cardiac: denies: Chest pain / pressure, Palpitations Respiratory: denies: Dyspnea, Cough, Wheezing GI: reports: Nausea, Diarrhea. denies: Vomiting, Constipation : denies: Dysuria, Frequency Skin: denies: Rash, Lesions Musculoskeletal: reports: Neck pain, Back pain, Extremity pain Neurologic: reports: Generalized weakness. 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, Dilation and currettage HEENT: Cataracts - Present Medications Home Medications: Ambulatory Orders Medication Instructions Recorded Confirmed Escitalopram Oxalate 20 mg PO BID 04/28/17 05/28/17 Gabapentin 300 mg PO BID 04/28/17 05/28/17 Iron,Carbonyl/Folic Acid/Mv-Mn 1 tab PO BID 04/28/17 05/28/17 [Active Fe Tablet] Metoprolol Tartrate [Lopressor] 100 mg PO DAILY 04/28/17 05/28/17 Omeprazole/Sodium Bicarbonate 20 mg PO DAILY 04/28/17 05/28/17 [Omeppi 20 mg-1,100 mg Capsule] Topiramate 25 mg PO TID 04/28/17 05/28/17 buPROPion [Wellbutrin Sr] 150 mg PO DAILY 04/28/17 05/28/17 Ondansetron Odt [Zofran] 4 mg TL Q6H PRN #14 tablet 11/08/17 - Allergies Allergies/Adverse Reactions: Allergies Allergy/AdvReac Type Severity Reaction Status Date / Time ketorolac tromethamine * Allergy Itching Verified 11/08/17 20:13 [From Toradol] Sulfa (Sulfonamide Allergy Rash Verified 11/08/17 20:13 Antibiotics) - Social History Does the pt smoke?: No Smoking Status: Never smoker Does the pt drink ETOH?: Yes Does the pt have substance abuse?: No - Immunizations Immunizations are current?: Yes - POLST Patient has POLST: No PD ED PE NORMAL - Vitals Vital signs reviewed: Yes - General General: Alert 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, No acute distress - HEENT HEENT: Atraumatic, PERRL - Neck Neck: Supple, no meningeal sign - Cardiac Cardiac: RRR - Respiratory Respiratory: No respiratory distress, Clear bilaterally - Abdomen Abdomen: Soft, Other (obese) - Derm Derm: Normal color, No rash - Neuro Neuro: Alert 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, No motor deficit, Normal speech Eye Opening: Spontaneous Motor: Obeys Commands Verbal: Oriented GCS Score: 15 PD ED PE EXPANDED - HEENT HEENT: Dry mucous membranes Results - Vitals Vitals: Vital Signs - 24 hr 11/08/17 11/08/17 11/08/17 20:08 21:31 22:00 Temperature 36.1 C L Heart Rate 86 77 84 Respiratory 18 16 18 Rate Blood Pressure 151/95 H 158/91 H 154/94 H O2 Saturation 97 95 94 Oxygen O2 Source Room air - Labs Labs: Laboratory Tests 11/08/17 11/08/17 11/08/17 21:26 21:26 21:26 WBC 12.2 H RBC 4.96 Hgb 11.3 L Hct 36.4 L MCV 73.4 L MCH 22.7 L MCHC 30.9 L RDW 22.5 H Plt Count 324 MPV 7.9 Neut # 9.7 H Lymph # 1.2 L [place] # 0.8 Eos # 0.4 Baso # 0.1 Absolute Nucleated RBC 0.03 Nucleated RBC % 0.2 Manual Slide Review Indicated WBC Morphology NORMAL APPEARANCE Platelet Estimate NORMAL (130-450,000) Platelet Morphology NORMAL APPEARANCE RBC Morph Micro Appear 2+ MICROCYTOSIS VBG pH VBG pCO2 VBG pO2 VBG HCO3 VBG Total CO2 VBG O2 Saturation VBG Base Excess Sodium 133 L Potassium 3.7 Chloride 101 Carbon Dioxide 28 Anion Gap 4.0 L BUN 13 Creatinine 0.6 Estimated GFR (MDRD) 110 Glucose 138 H Calcium 8.2 L Magnesium 2.0 Total Bilirubin 0.2 AST 28 ALT 33 Alkaline Phosphatase 114 Troponin I < 0.04 Total Protein 7.5 Albumin 3.4 Globulin 4.1 Albumin/Globulin Ratio 0.8 L Lipase 17 L TSH Urine Color Urine Clarity Urine pH Ur Specific [place] Urine Protein Urine Glucose (UA) Urine Ketones Urine Occult Blood Urine Nitrite Urine Bilirubin Urine Urobilinogen Ur Leukocyte Esterase Ur Microscopic Review Urine Culture Comments Influenza A (Rapid) Influenza B (Rapid) Influenza Types A,B Ag 11/08/17 11/08/17 11/08/17 21:26 21:26 21:26 WBC RBC Hgb Hct MCV MCH MCHC RDW Plt Count MPV Neut # Lymph # [place] # Eos # Baso # Absolute Nucleated RBC Nucleated RBC % Manual Slide Review WBC Morphology Platelet Estimate Platelet Morphology RBC Morph Micro Appear VBG pH 7.422 H VBG pCO2 47.9 VBG pO2 44.6 VBG HCO3 30.5 H VBG Total CO2 32.0 H VBG O2 Saturation 82.3 H VBG Base Excess 5.2 H Sodium Potassium Chloride Carbon Dioxide Anion Gap BUN Creatinine Estimated GFR (MDRD) Glucose Calcium Magnesium Total Bilirubin AST ALT Alkaline Phosphatase Troponin I Total Protein Albumin Globulin Albumin/Globulin Ratio Lipase TSH 3.26 Urine Color Urine Clarity Urine pH Ur Specific [place] Urine Protein Urine Glucose (UA) Urine Ketones Urine Occult Blood Urine Nitrite Urine Bilirubin Urine Urobilinogen Ur Leukocyte Esterase Ur Microscopic Review Urine Culture Comments Influenza A (Rapid) Negative Influenza B (Rapid) Negative Influenza Types A,B Ag - 11/08/17 21:39 WBC RBC Hgb Hct MCV MCH MCHC RDW Plt Count MPV Neut # Lymph # [place] # Eos # Baso # Absolute Nucleated RBC Nucleated RBC % Manual Slide Review WBC Morphology Platelet Estimate Platelet Morphology RBC Morph Micro Appear VBG pH VBG pCO2 VBG pO2 VBG HCO3 VBG Total CO2 VBG O2 Saturation VBG Base Excess Sodium Potassium Chloride Carbon Dioxide Anion Gap BUN Creatinine Estimated GFR (MDRD) Glucose Calcium Magnesium Total Bilirubin AST ALT Alkaline Phosphatase Troponin I Total Protein Albumin Globulin Albumin/Globulin Ratio Lipase TSH Urine Color YELLOW Urine Clarity CLEAR Urine pH 7.0 Ur Specific [place] 1.015 Urine Protein NEGATIVE Urine Glucose (UA) NEGATIVE Urine Ketones NEGATIVE Urine Occult Blood NEGATIVE Urine Nitrite NEGATIVE Urine Bilirubin NEGATIVE Urine Urobilinogen 0.2 (NORMAL) Ur Leukocyte Esterase NEGATIVE Ur Microscopic Review NOT INDICATED Urine Culture Comments NOT INDICATED Influenza A (Rapid) Influenza B (Rapid) Influenza Types A,B Ag PD MEDICAL DECISION MAKING - ED course Complexity details: reviewed old records, reviewed results, re-evaluated patient , considered differential, d/w patient ED course: Patient was seen and examined at bedside. patient was in no acute distress. ekg had been performed and was normal sinus. Iv access was gained, labs were drawn and urine was collected. patient was treated with zofran and a fluid bolus. patient's diagnostics were within patient's normal limits. patient required no further inpatient work up and was stable for discharge with outpatient follow up. Departure - Departure Disposition: Home, Self Care Clinical Impression: Dehydration Condition: Good Instructions: ED Dehydration Follow-Up: Luann Carrillo DO [Primary Care Provider] - Within 3 Days Prescriptions: Ondansetron Odt [Zofran] 4 mg TL Q6H PRN #14 tablet PRN Reason: Nausea / Vomiting Comments: Your diagnostics today showed mild dehydration but otherwise within normal limits. You are more prone to dehydration since you are on the diuretic. It is important to try to stay hydrated and you lose a lot of fluid with episodes of diarrhea. You should take the zofran as needed for nausea and follow up with your doctor if your symptoms don't improve. You may return to the emergency department at any time for new, worsening or uncontrollable symptoms.
== END 2017-11-08 22:42 | disposition home or self-care (01) ==
LOC: EDUNIT# → ED 20:07
DX: E86.0 Dehydration (principal); I10 Essential (primary) hypertension; G47.30 Sleep apnea, unspecified; K21.9 Gastro-esophageal reflux disease without esophagitis; M19.90 Unspecified osteoarthritis, unspecified site
CPT/HCPCS: 36415; 80053; 81001; 81003; 82803; 83690; 83735; 84443; 84484; 85025; 87086; 87275; 87276; 93005; 96374; 99284

== ENCOUNTER 2018-03-22 11:11 | Emergency (ER) | payer OTHER ==
[2018-03-22] MEDS ORDERED: LIDOCAINE VISCOUS 2% 15 ML UDC MM STA (12:24)
[2018-03-22] MEDS ORDERED: MAG HYDROX/AL HYDROX/SIMETH 30 ML UDC PO STA (12:24)
[2018-03-22] MEDS ORDERED: ONDANSETRON ODT 4 MG TABLET TL STA (12:25)
--- NOTE | 2018-03-22 12:27 | ED Physician Documentation ---
PD HPI ABD PAIN - Stated complaint Stated Complaint: VOMITING - Chief complaint Chief Complaint: Abd Pain - History obtained from History obtained from: Patient - History of Present Illness Timing - onset: Other (3 days of worsening burning epigastric pain that was much worse today and now associated with vomiting yellowish material with trace blood in it. She has had a couple small episodes of diarrhea. The pain does not radiate to the back shoulder or anywhere else. She does smoke marijuana daily but took a hot shower today which did not help. She still has her gallbladder. She had an upper endoscopy about 6 months ago which per her probably showed gastritis and she does take a PPI.) Review of Systems Constitutional: reports: Fatigue. 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: Endometrial ablation, Dilation and currettage HEENT: Cataracts - Present Medications Home Medications: Ambulatory Orders Medication Instructions Recorded Confirmed Escitalopram Oxalate 20 mg PO BID 04/28/17 05/28/17 Gabapentin 300 mg PO BID 04/28/17 05/28/17 Iron,Carbonyl/Folic Acid/Mv-Mn 1 tab PO BID 04/28/17 05/28/17 [Active Fe Tablet] Metoprolol Tartrate [Lopressor] 100 mg PO DAILY 04/28/17 05/28/17 Omeprazole/Sodium Bicarbonate 20 mg PO DAILY 04/28/17 05/28/17 [Omeppi 20 mg-1,100 mg Capsule] Topiramate 25 mg PO TID 04/28/17 05/28/17 buPROPion [Wellbutrin Sr] 150 mg PO DAILY 04/28/17 05/28/17 Ondansetron Odt [Zofran] 4 mg TL Q6H PRN #14 tablet 11/08/17 HYDROcod/ACETAM 5/325 [[place] 5/325] 1 - 2 ea PO Q6H PRN #7 tablet 03/22/18 Ondansetron HCl [Zofran] 4 mg PO Q6H PRN #10 tablet 03/22/18 - Allergies Allergies/Adverse Reactions: Allergies Allergy/AdvReac Type Severity Reaction Status Date / Time ketorolac tromethamine * Allergy Itching Verified 03/22/18 11:27 [From Toradol] Sulfa (Sulfonamide Allergy Rash Verified 03/22/18 11:27 Antibiotics) - Social History Does the pt smoke?: No Smoking Status: Never smoker Does the pt drink ETOH?: No Does the pt have substance abuse?: No Substance Use and Type: Marijuana - Immunizations Immunizations are current?: Yes - POLST Patient has POLST: No PD ED PE NORMAL - Vitals Vital signs reviewed: Yes - General General: Alert 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, No acute distress - HEENT HEENT: PERRL, EOMI - Neck Neck: Supple, no meningeal sign, No bony TTP - Cardiac Cardiac: RRR, No murmur - Respiratory Respiratory: No respiratory distress, Clear bilaterally - Abdomen Abdomen: Normal bowel sounds, Soft, Other (Tender in the epigastrium greater than the right upper quadrant with equivocal Liz sign. She is morbidly obese.) - Back Back: No CVA TTP, No spinal TTP - Derm Derm: Normal color, Warm and dry - Extremities Extremities: No edema, No calf tenderness / cord - Neuro Neuro: Alert 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, Normal speech - Psych Psych: Normal mood, Normal affect Results - Vitals Vitals: Vital Signs - 24 hr 03/22/18 11:24 Temperature 36.8 C Heart Rate 75 Respiratory 12 Rate Blood Pressure 160/114 H O2 Saturation 96 Oxygen O2 Source Room air - Labs Labs: Laboratory Tests 03/22/18 03/22/18 03/22/18 12:37 12:37 12:37 WBC 10.4 RBC 4.82 Hgb 12.7 Hct 37.8 MCV 78.5 L MCH 26.4 L MCHC 33.6 RDW 16.1 H Plt Count 262 MPV 8.6 Neut # (Auto) 7.7 H Lymph # (Auto) 1.3 L [place] # (Auto) 0.9 Eos # (Auto) 0.4 Baso # (Auto) 0.1 Absolute Nucleated RBC 0.00 Nucleated RBC % 0.0 Sodium 134 L Potassium 3.5 Chloride 98 L Carbon Dioxide 27 Anion Gap 9.0 BUN 12 Creatinine 0.7 Estimated GFR (MDRD) 92 Glucose 130 H Calcium 8.3 L Total Bilirubin 0.8 AST 39 ALT 54 Alkaline Phosphatase 100 Troponin I < 0.04 Total Protein 7.7 Albumin 3.6 Globulin 4.1 Albumin/Globulin Ratio 0.9 L Lipase 33 PD MEDICAL DECISION MAKING - ED course ED course: Is relatively acute upper abdominal pain with vomiting and small amount of diarrhea. Differential would include biliary colic, cholecystitis, viral gastroenteritis, and gastritis. Gastritis was high in the differential, she did not have much relief with her pain with a GI cocktail but did have good relief of the nausea after oral Zofran. Her ultrasound and labs were basically unremarkable. We discussed either a CT or a watchful wait kind of situation and she opted for the latter and understands she needs to return tomorrow morning early if not better, sooner if she develops new symptoms such as right lower quadrant pain or fever. - Sepsis Event Vital Signs: Vital Signs - 24 hr 03/22/18 11:24 Temperature 36.8 C Heart Rate 75 Respiratory 12 Rate Blood Pressure 160/114 H O2 Saturation 96 Oxygen O2 Source Room air Departure - Departure Disposition: 01 Home, Self Care Clinical Impression: Vomiting Qualifiers: Vomiting type: bilious vomiting Nausea presence: with nausea Qualified Code(s) : R11.14 - Bilious vomiting Abdominal pain Qualifiers: Abdominal location: epigastric Qualified Code(s): R10.13 - Epigastric pain Condition: Good Record reviewed to determine appropriate education?: Yes Instructions: ED Abdominal Pain Unkn Cause Prescriptions: HYDROcod/ACETAM 5/325 [[place] 5/325] 1 - 2 ea PO Q6H PRN #7 tablet PRN Reason: Pain Ondansetron HCl [Zofran] 4 mg PO Q6H PRN #10 tablet PRN Reason: Nausea / Vomiting Comments: Return 7 AM tomorrow if not mostly better, sooner if you develop new symptoms such as fever or lower right abdominal pain. Your blood pressure was elevated today on check into the emergency department. This does not mean that you have hypertension, it is a common phenomenon to come to the emergency department and have elevated blood pressure. I recommend that you see your primary care physician within the week to have it rechecked when you are feeling better. Forms: Activity restrictions
[2018-03-22 12:43] LABS: BASOPHILS # (AUTO) 0.1 10^3/uL (0.0-0.1); BASOPHILS % (AUTO) 1.3 %; EOSINOPHILS # (AUTO) 0.4 10^3/uL (0.0-0.7); EOSINOPHILS % (AUTO) 3.7 %; HGB - HEMOGLOBIN 12.7 g/dL (12.0-16.0); LYMPHOCYTES # (AUTO) 1.3 10^3/uL (1.5-3.5); LYMPHOCYTES % (AUTO) 12.5 %; MEAN CORPUSCULAR HEMOGLOBIN 26.4 pg (27.0-31.0); MEAN CORPUSCULAR HGB CONC 33.6 g/dL (32.0-36.0); MEAN CORPUSCULAR VOLUME 78.5 fL (81.0-99.0); MEAN PLATELET VOLUME 8.6 fL (7.9-10.8); MONOCYTES # (AUTO) 0.9 10^3/uL (0.0-1.0); MONOCYTES % (AUTO) 8.3 %; NEUTROPHILS # (AUTO) 7.7 10^3/uL (1.5-6.6); NEUTROPHILS % (AUTO) 74.2 %; PLT - PLATELET COUNT 262 10^3/uL (130-450); RED BLOOD COUNT 4.82 10^6/uL (4.20-5.40); RED CELL DISTRIBUTION WIDTH 16.1 % (12.0-15.0); WHITE BLOOD COUNT 10.4 x10^3/uL (4.8-10.8)
[2018-03-22 13:01] LABS: ALBUMIN 3.6 g/dL (3.2-5.5); ALBUMIN/GLOBULIN RATIO 0.9 (1.0-2.2); BILIRUBIN,TOTAL 0.8 mg/dL (0.2-1.0); CALCIUM 8.3 mg/dL (8.5-10.3); CREATININE 0.7 mg/dL (0.4-1.0); TOTAL PROTEIN 7.7 g/dL (6.7-8.2)
[2018-03-22] MEDS ORDERED: HYDROcod/ACETAM 5/325 MG TABLET PO STA (13:02)
--- NOTE | 2018-03-22 13:49 | Ultrasound Report ---
Procedure Date: 03/22/2018 Accession Number: [id number] / [id number] Procedure: US - Abdomen Limited CPT Code: FULL RESULT: EXAM: ABDOMEN ULTRASOUND LIMITED, RUQ EXAM DATE: 03/22/2018 01:01 PM. CLINICAL HISTORY: RUQ pain. COMPARISON: CT 05/11/2017. TECHNIQUE: Real-time scanning was performed with static images obtained. FINDINGS: Examination difficult because of patient body habitus. Liver: Mildly enlarged, 20 cm. Diffusely hyperechoic with decreased posterior acoustic penetration consistent with fatty infiltration. Main portal vein flow: Hepatopetal. Gallbladder: Patient tender over the gallbladder. However, gallbladder is normal in size and appearance without stones, sludge, or thickening, or pericholecystic fluid. Biliary System: CBD measures 6.6 mm. Visualization is limited. No intrahepatic biliary duct dilatation. Other: No right hydronephrosis. IMPRESSION: 1. Mild hepatomegaly. Diffuse hepatic steatosis. 2. Patient tender over the gallbladder. However, gallbladder normal in size and appearance without stones. 3. Common bile duct minimally prominent in size, nonspecific. No intrahepatic biliary ductal dilatation. RADIA
[2018-03-22 14:03] VITALS: BP 145/76
== END 2018-03-22 14:09 | disposition home or self-care (01) ==
LOC: ED 11:11
DX: R11.14 Bilious vomiting (principal); R10.13 Epigastric pain; R03.0 Elevated blood-pressure reading, without diagnosis of hypertension
CPT/HCPCS: 36415; 76705; 80053; 83690; 84484; 85025; 99283; A9270; Q0162; 81001; 81003; 81025; 87086

== ENCOUNTER 2018-09-23 22:01 | Emergency (ER) | payer OTHER ==
[2018-09-23 22:49] LABS: BILIRUBIN,URINE NEGATIVE (NEGATIVE); GLUCOSE, URINE (UA) NEGATIVE (NEGATIVE); KETONES,URINE (UA) NEGATIVE (NEGATIVE); LEUKOCYTE ESTERASE, URINE NEGATIVE (NEGATIVE); NITRITE,URINE NEGATIVE (NEGATIVE); OCCULT BLOOD,URINE NEGATIVE (NEGATIVE); PROTEIN,URINE NEGATIVE (NEGATIVE); UROBILINOGEN,URINE 0.2 (NORMAL) E.U./dL (NORMAL)
[2018-09-23 22:52] LABS: CLARITY,URINE CLEAR (CLEAR)
[2018-09-23 23:30] LABS: HCG UR QUAL NEGATIVE
--- NOTE | 2018-09-24 00:38 | ED Physician Documentation ---
History of Present Illness - Stated complaint Stated Complaint: FEVER - Chief complaint Chief Complaint: Fever - History obtained from History obtained from: Patient - History of Present Illness Timing: Today Pain level now: 8 Improved by: dark room, quiet Worsened by: noise, light (photophobia) - Treatment prior to arrival Treatment prior to arrival: c/o generalized JUDD c/w her migraine headaches with nausea and vomiting. also fevers (Tmax 103.5, earlier today), sweats and chills, generalized myalgias Review of Systems Constitutional: reports: Fever, Chills, Myalgias, Sweats Cardiac: reports: Reviewed and negative Respiratory: reports: Reviewed and negative GI: reports: Nausea, Vomiting. denies: Abdominal Pain : denies: Dysuria, Frequency Skin: denies: Rash Musculoskeletal: denies: Neck pain Neurologic: reports: Generalized weakness, Headache. 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 ablation, Dilation and currettage HEENT: Cataracts - Present Medications Home Medications: Ambulatory Orders Medication Instructions Recorded Confirmed Escitalopram Oxalate 20 mg PO BID 04/28/17 05/28/17 Gabapentin 300 mg PO BID 04/28/17 05/28/17 Iron,Carbonyl/Folic Acid/Mv-Mn 1 tab PO BID 04/28/17 05/28/17 [Active Fe Tablet] Metoprolol Tartrate [Lopressor] 100 mg PO DAILY 04/28/17 05/28/17 Omeprazole/Sodium Bicarbonate 20 mg PO DAILY 04/28/17 05/28/17 [Omeppi 20 mg-1,100 mg Capsule] Topiramate 25 mg PO TID 04/28/17 05/28/17 buPROPion [Wellbutrin Sr] 150 mg PO DAILY 04/28/17 05/28/17 Ondansetron Odt [Zofran] 4 mg TL Q6H PRN #14 tablet 11/08/17 HYDROcod/ACETAM 5/325 [[place] 5/325] 1 - 2 ea PO Q6H PRN #7 tablet 03/22/18 Ondansetron HCl [Zofran] 4 mg PO Q6H PRN #10 tablet 03/22/18 Oseltamivir [Tamiflu] 75 mg PO BID #9 capsule 09/24/18 Promethazine [Phenergan] 25 mg PO Q6H PRN #10 tab 09/24/18 oxyCODONE [Roxicodone] 5 - 10 mg PO Q6H PRN #14 tablet 09/24/18 - Allergies Allergies/Adverse Reactions: Allergies Allergy/AdvReac Type Severity Reaction Status Date / Time ketorolac tromethamine * Allergy Itching Verified 03/22/18 11:27 [From Toradol] Sulfa (Sulfonamide Allergy Rash Verified 03/22/18 11:27 Antibiotics) - Social History Does the pt smoke?: No Smoking Status: Never smoker Does the pt drink ETOH?: No Does the pt have substance abuse?: No - Immunizations Immunizations are current?: Yes - POLST Patient has POLST: No PD ED PE NORMAL - Vitals Vital signs reviewed: Yes - General General: Alert 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, Well developed/nourished, Other (appears uncomfortable, has blanket over her eyes and room is dark per her request) - HEENT HEENT: PERRL, EOMI, Moist mucous membranes, Pharynx benign - Neck Neck: Supple, no meningeal sign - Cardiac Cardiac: RRR, No murmur - Respiratory Respiratory: No respiratory distress, Clear bilaterally - Abdomen Abdomen: Soft, Non tender - Neuro Neuro: Alert 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, 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, No motor deficit, No sensory deficit, Normal speech Results - Vitals Vitals: Oxygen O2 Source Room air - Labs Labs: Laboratory Tests 09/23/18 09/23/18 09/23/18 22:20 22:35 23:25 Urine Color YELLOW Urine Clarity CLEAR Urine pH 6.0 Ur Specific [place] 1.025 1.025 Urine Protein NEGATIVE Urine Glucose (UA) NEGATIVE Urine Ketones NEGATIVE Urine Occult Blood NEGATIVE Urine Nitrite NEGATIVE Urine Bilirubin NEGATIVE Urine Urobilinogen 0.2 (NORMAL) Ur Leukocyte Esterase NEGATIVE Ur Microscopic Review NOT INDICATED Urine Culture Comments NOT INDICATED Urine HCG, Qual NEGATIVE Influenza A (Rapid) POSITIVE H Influenza B (Rapid) Negative PD MEDICAL DECISION MAKING - ED course Complexity details: reviewed results, re-evaluated patient, considered differential, d/w patient Departure - Departure Disposition: 01 Home, Self Care Clinical Impression: Migraine headache, Influenza A Condition: Good Instructions: ED Flu, ED Headache Migraine, Medication: Tamiflu (Oseltamivir) Follow-Up: Luann Carrillo MD [Primary Care Provider] - (3-5 days if symptoms persist) Prescriptions: Oseltamivir [Tamiflu] 75 mg PO BID #9 capsule oxyCODONE [Roxicodone] 5 - 10 mg PO Q6H PRN #14 tablet PRN Reason: Headache Promethazine [Phenergan] 25 mg PO Q6H PRN #10 tab PRN Reason: Nausea / Vomiting Discharge Date/Time: 09/24/18 04:23
[2018-09-24] MEDS ORDERED: OSELTAMIVIR 75 MG CAPSULE PO STA (00:53)
[2018-09-24] MEDS ORDERED: PROMETHAZINE 25 MG/1 ML VIAL IM STA (00:53)
[2018-09-24] MEDS ORDERED: IBUPROFEN 600 MG TABLET PO STA (00:53)
[2018-09-24] MEDS ORDERED: HYDROmorphone 1 MG/ML CARPUJECT IM STA ×2 (00:53→03:26)
[2018-09-24 04:08] VITALS: BP 107/66
== END 2018-09-24 04:23 | disposition home or self-care (01) ==
LOC: ED 22:01
DX: G43.909 Migraine, unspecified, not intractable, without status migrainosus (principal); J10.1 Influenza due to other identified influenza virus with other respiratory manifestations; I10 Essential (primary) hypertension
CPT/HCPCS: 81003; 81025; 87275; 87276; 96372; 99283; 99284; A9270; J1170; 81001; 87086

== ENCOUNTER 2018-09-29 23:25 | Emergency (ER) | payer OTHER ==
--- NOTE | 2018-09-29 23:32 | ED Physician Documentation ---
History of Present Illness - Stated complaint Stated Complaint: FLU SX/NOT EATING/DRINKING - Chief complaint Chief Complaint: General - History obtained from History obtained from: Patient - History of Present Illness Timing: How many days ago (4) Improved by: phenergan (but out of phenergan) Worsened by: PO - Additonal information Additional information: treated and released from the emergency department six days ago for influenza. She also had a migraine headache at that time. She returns due to worsening nausea and vomiting as well as diarrhea. She says she cannot keep anything down for four days including sips of liquids. However, she says she did finish the five day course of Tamiflu as well as all of the Phenergan. Review of Systems Constitutional: reports: Fatigue. denies: Fever, Chills, Sweats Cardiac: reports: Reviewed and negative Respiratory: reports: Reviewed and negative GI: reports: Nausea, Vomiting, Diarrhea. 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: Endometrial ablation, Dilation and currettage HEENT: Cataracts - Present Medications Home Medications: Ambulatory Orders Medication Instructions Recorded Confirmed Escitalopram Oxalate 20 mg PO BID 04/28/17 05/28/17 Gabapentin 300 mg PO BID 04/28/17 05/28/17 Iron,Carbonyl/Folic Acid/Mv-Mn 1 tab PO BID 04/28/17 05/28/17 [Active Fe Tablet] Metoprolol Tartrate [Lopressor] 100 mg PO DAILY 04/28/17 05/28/17 Omeprazole/Sodium Bicarbonate 20 mg PO DAILY 04/28/17 05/28/17 [Omeppi 20 mg-1,100 mg Capsule] Topiramate 25 mg PO TID 04/28/17 05/28/17 buPROPion [Wellbutrin Sr] 150 mg PO DAILY 04/28/17 05/28/17 Ondansetron Odt [Zofran] 4 mg TL Q6H PRN #14 tablet 11/08/17 HYDROcod/ACETAM 5/325 [[place] 5/325] 1 - 2 ea PO Q6H PRN #7 tablet 03/22/18 Ondansetron HCl [Zofran] 4 mg PO Q6H PRN #10 tablet 03/22/18 Oseltamivir [Tamiflu] 75 mg PO BID #9 capsule 09/24/18 Promethazine [Phenergan] 25 mg PO Q6H PRN #10 tab 09/24/18 oxyCODONE [Roxicodone] 5 - 10 mg PO Q6H PRN #14 tablet 09/24/18 Diphenoxylate/Atropine [Lomotil] 1 each PO QID PRN #10 tablet 09/30/18 Promethazine [Phenergan] 25 mg PO Q6H PRN #10 tab 09/30/18 - Allergies Allergies/Adverse Reactions: Allergies Allergy/AdvReac Type Severity Reaction Status Date / Time ketorolac tromethamine * Allergy Itching Verified 09/29/18 23:31 [From Toradol] Sulfa (Sulfonamide Allergy Rash Verified 09/29/18 23:31 Antibiotics) - Social History Does the pt smoke?: No Smoking Status: Never smoker Does the pt drink ETOH?: No Does the pt have substance abuse?: No - Immunizations Immunizations are current?: Yes - POLST Patient has POLST: No PD ED PE NORMAL - Vitals Vital signs reviewed: Yes - General General: Alert 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, No acute distress, Well developed/nourished - HEENT HEENT: Moist mucous membranes - Neck Neck: Supple, no meningeal sign - Cardiac Cardiac: RRR, No murmur - Respiratory Respiratory: No respiratory distress, Clear bilaterally - Abdomen Abdomen: Normal bowel sounds, Soft, Non tender, Non distended, No organomegaly - Back Back: No CVA TTP - Derm Derm: Normal color, Warm and dry Results - Vitals Vitals: Oxygen O2 Source Room air - Labs Labs: Laboratory Tests 09/30/18 09/30/18 09/30/18 00:00 00:00 00:45 WBC 11.1 H RBC 4.96 Hgb 14.0 Hct 42.2 MCV 84.9 MCH 28.2 MCHC 33.2 RDW 13.8 Plt Count 270 MPV 8.8 Neut # (Auto) 8.3 H Lymph # (Auto) 1.6 Stewart # (Auto) 0.8 Eos # (Auto) 0.3 Baso # (Auto) 0.1 Absolute Nucleated RBC 0.01 Nucleated RBC % 0.1 Sodium 136 Potassium 3.3 L Chloride 99 L Carbon Dioxide 25 Anion Gap 12.0 BUN 10 Creatinine 0.7 Estimated GFR (MDRD) 92 Glucose 111 H Calcium 8.7 Total Bilirubin 0.9 AST 32 ALT 49 Alkaline Phosphatase 105 Total Protein 8.0 Albumin 3.7 Globulin 4.3 H Albumin/Globulin Ratio 0.9 L Lipase 27 Urine Color DARK YELLOW Urine Clarity N Urine pH 6.0 Ur Specific [place] 1.025 Urine Protein TRACE Urine Glucose (UA) NEGATIVE Urine Ketones 15 H Urine Occult Blood NEGATIVE Urine Nitrite NEGATIVE Urine Bilirubin NEGATIVE Urine Urobilinogen 0.2 (NORMAL) Ur Leukocyte Esterase NEGATIVE Ur Microscopic Review NOT INDICATED Urine Culture Comments NOT INDICATED PD MEDICAL DECISION MAKING - ED course Complexity details: reviewed results, re-evaluated patient, considered diff erential, d/w patient Departure - Departure Disposition: Home, Self Care Clinical Impression: Diarrhea Qualifiers: Diarrhea type: unspecified type Qualified Code(s): R19.7 - Diarrhea, unspecified Vomiting Qualifiers: Vomiting type: unspecified Vomiting Intractability: non-intractable Nausea presence: with nausea Qualified Code(s): R11.2 - Nausea with vomiting, unspecified Condition: Good Instructions: ED Diet Vomiting Diarrhea, ED Vomiting Diarrhea Nonspecific Ad Follow-Up: Luann Carrillo MD [Primary Care Provider] - Prescriptions: Diphenoxylate/Atropine [Lomotil] 1 each PO QID PRN #10 tablet PRN Reason: Diarrhea Promethazine [Phenergan] 25 mg PO Q6H PRN #10 tab PRN Reason: Nausea / Vomiting Discharge Date/Time: 09/30/18 02:55
[2018-09-30] MEDS ORDERED: PROMETHAZINE INJ 25 MG in SODIUM CHLORIDE 0.9% 50 ML IV STA (00:11)
[2018-09-30] MEDS ORDERED: SODIUM CHLORIDE 0.9% 1,000 ML IV STA ×2 (00:11→01:29)
[2018-09-30 00:18] LABS: BASOPHILS # (AUTO) 0.1 10^3/uL (0.0-0.1); BASOPHILS % (AUTO) 0.7 %; EOSINOPHILS # (AUTO) 0.3 10^3/uL (0.0-0.7); EOSINOPHILS % (AUTO) 2.6 %; LYMPHOCYTES # (AUTO) 1.6 10^3/uL (1.5-3.5); LYMPHOCYTES % (AUTO) 14.2 %; MEAN CORPUSCULAR HEMOGLOBIN 28.2 pg (27.0-31.0); MEAN CORPUSCULAR HGB CONC 33.2 g/dL (32.0-36.0); MEAN CORPUSCULAR VOLUME 84.9 fL (81.0-99.0); MEAN PLATELET VOLUME 8.8 fL (7.9-10.8); MONOCYTES # (AUTO) 0.8 10^3/uL (0.0-1.0); MONOCYTES % (AUTO) 7.4 %; NEUTROPHILS # (AUTO) 8.3 10^3/uL (1.5-6.6); NEUTROPHILS % (AUTO) 75.1 %; PLT - PLATELET COUNT 270 10^3/uL (130-450); RED BLOOD COUNT 4.96 10^6/uL (4.20-5.40); RED CELL DISTRIBUTION WIDTH 13.8 % (12.0-15.0); WHITE BLOOD COUNT 11.1 x10^3/uL (4.8-10.8)
[2018-09-30 00:27] LABS: ALBUMIN 3.7 g/dL (3.2-5.5); ALBUMIN/GLOBULIN RATIO 0.9 (1.0-2.2); BILIRUBIN,TOTAL 0.9 mg/dL (0.2-1.0); CALCIUM 8.7 mg/dL (8.5-10.3); CREATININE 0.7 mg/dL (0.4-1.0)
[2018-09-30 01:01] LABS: GLUCOSE, URINE (UA) NEGATIVE (NEGATIVE); KETONES,URINE (UA) 15 mg/dL (NEGATIVE); LEUKOCYTE ESTERASE, URINE NEGATIVE (NEGATIVE); NITRITE,URINE NEGATIVE (NEGATIVE); OCCULT BLOOD,URINE NEGATIVE (NEGATIVE); PROTEIN,URINE TRACE mg/dL (NEGATIVE); UROBILINOGEN,URINE 0.2 (NORMAL) E.U./dL (NORMAL)
[2018-09-30 01:04] LABS: BILIRUBIN,URINE NEGATIVE (NEGATIVE); CLARITY,URINE N (CLEAR); ICTOTEST,URINE NEGATIVE
[2018-09-30] MEDS ORDERED: ONDANSETRON 4 MG/2 ML VIAL IVP STA (01:29)
[2018-09-30 02:52] VITALS: BP 120/88
== END 2018-09-30 02:55 | disposition home or self-care (01) ==
LOC: ED 23:25
DX: R11.2 Nausea with vomiting, unspecified (principal); R19.7 Diarrhea, unspecified; I10 Essential (primary) hypertension
CPT/HCPCS: 36415; 80053; 81003; 83690; 85025; 96361; 96365; 96375; 99283; 99284; J7040; 81001; 87086

== ENCOUNTER 2018-10-13 18:22 | Outpatient (CLI) | payer OTHER | END 2018-10-13 18:23 | disposition EMS.NT | LOC: EMS 18:22 | PROVIDERS: ATTEND Surgery | DX: Z03.89 Encounter for observation for other suspected diseases and conditions ruled out (principal) ==

== ENCOUNTER 2018-11-10 10:05 | Outpatient (CLI) | payer OTHER ==
[2018-11-10 13:08] LABS: BASOPHILS # (AUTO) 0.1 10^3/uL (0.0-0.1); BASOPHILS % (AUTO) 0.9 %; EOSINOPHILS # (AUTO) 0.4 10^3/uL (0.0-0.7); HGB - HEMOGLOBIN 13.9 g/dL (12.0-16.0); LYMPHOCYTES # (AUTO) 1.8 10^3/uL (1.5-3.5); LYMPHOCYTES % (AUTO) 13.8 %; MEAN CORPUSCULAR HGB CONC 32.7 g/dL (32.0-36.0); MEAN CORPUSCULAR VOLUME 85.4 fL (81.0-99.0); MEAN PLATELET VOLUME 9.1 fL (7.9-10.8); MONOCYTES # (AUTO) 0.9 10^3/uL (0.0-1.0); MONOCYTES % (AUTO) 6.9 %; NEUTROPHILS # (AUTO) 9.9 10^3/uL (1.5-6.6); NEUTROPHILS % (AUTO) 75.4 %; PLT - PLATELET COUNT 305 10^3/uL (130-450); RED BLOOD COUNT 4.98 10^6/uL (4.20-5.40); RED CELL DISTRIBUTION WIDTH 14.6 % (12.0-15.0); WHITE BLOOD COUNT 13.1 x10^3/uL (4.8-10.8)
[2018-11-10 13:25] LABS: ALBUMIN 3.9 g/dL (3.2-5.5); BILIRUBIN,TOTAL 0.8 mg/dL (0.2-1.0); CREATININE 0.6 mg/dL (0.4-1.0); MAGNESIUM 2.4 mg/dL (1.7-2.8); TOTAL PROTEIN 7.8 g/dL (6.7-8.2)
== END 2018-11-10 23:59 | disposition home or self-care (01) ==
LOC: LAB.WCP 10:05
PROVIDERS: ATTEND Physician Assistant Medical
DX: M62.838 Other muscle spasm (principal); R44.3 Hallucinations, unspecified
CPT/HCPCS: 36415; 80053; 80307; 81599; 83735; 85025

== ENCOUNTER 2018-11-10 12:00 | Outpatient (CLI) | payer OTHER ==
--- NOTE | 2018-11-10 12:58 | CT Report ---
Reason: HALLUCINATIONS, MUSCLE SPASM, ANXIETY DEPRESSION Procedure Date: 11/10/2018 Accession Number: [id number] / [id number] Procedure: CT - HEAD WO CPT Code: FULL RESULT: EXAM: CT HEAD EXAM DATE: 11/10/2018 12:41 PM. CLINICAL HISTORY: Hallucinations, muscle spasm, anxiety depression. COMPARISON: HEAD W/O 08/26/2013 10:54 AM. TECHNIQUE: Multiaxial CT images were obtained from the foramen magnum to the vertex. Reformats: Sagittal and coronal. IV contrast: None. In accordance with CT protocol optimization, one or more of the following dose reduction techniques were utilized for this exam: automated exposure control, adjustment of mA and/or KV based on patient size, or use of iterative reconstructive technique. FINDINGS: Parenchyma: No intraparenchymal hemorrhage. No evidence of mass, midline shift, or CT findings of infarction. Reyes-white differentiation is distinct. Extraaxial Spaces: Normal for age. No subdural or epidural collections identified. Ventricles: Normal in size and position. Sinuses and Orbits: Imaged paranasal sinuses, orbits, and mastoids show no significant abnormality. Bones: No evidence of fracture or calvarial defect. Other: None. IMPRESSION: Normal head CT. RADIA
== END 2018-11-10 12:01 | disposition home or self-care (01) ==
LOC: DI 12:00
PROVIDERS: ATTEND Physician Assistant Medical
DX: R44.3 Hallucinations, unspecified (principal); M62.838 Other muscle spasm; F41.8 Other specified anxiety disorders
CPT/HCPCS: 70450

== ENCOUNTER 2019-06-30 11:00 | Outpatient (CLI) | payer OTHER, MEDICAID ==
[2019-06-30 18:36] LABS: BASOPHILS # (AUTO) 0.1 10^3/uL (0.0-0.1); BASOPHILS % (AUTO) 0.8 %; EOSINOPHILS # (AUTO) 0.6 10^3/uL (0.0-0.7); HGB - HEMOGLOBIN 13.9 g/dL (12.0-16.0); LYMPHOCYTES # (AUTO) 1.6 10^3/uL (1.5-3.5); LYMPHOCYTES % (AUTO) 16.3 %; MEAN CORPUSCULAR HEMOGLOBIN 28.6 pg (27.0-31.0); MEAN CORPUSCULAR VOLUME 89.3 fL (81.0-99.0); MEAN PLATELET VOLUME 10.7 fL (7.9-10.8); MONOCYTES # (AUTO) 0.8 10^3/uL (0.0-1.0); NEUTROPHILS # (AUTO) 6.9 10^3/uL (1.5-6.6); NEUTROPHILS % (AUTO) 68.4 %; PLT - PLATELET COUNT 289 10^3/uL (130-450); RED BLOOD COUNT 4.86 10^6/uL (4.20-5.40); RED CELL DISTRIBUTION WIDTH 13.4 % (12.0-15.0); WHITE BLOOD COUNT 10.1 x10^3/uL (4.8-10.8)
[2019-06-30 18:47] LABS: ALBUMIN 3.7 g/dL (3.2-5.5); ALBUMIN/GLOBULIN RATIO 1.1 (1.0-2.2); BILIRUBIN,TOTAL 0.5 mg/dL (0.2-1.0); CALCIUM 8.4 mg/dL (8.5-10.3); CREATININE 0.7 mg/dL (0.4-1.0); TOTAL PROTEIN 7.2 g/dL (6.7-8.2)
[2019-06-30 19:11] LABS: THYROID STIMULATING HORMONE 3.32 uIU/mL (0.34-5.60)
[2019-06-30 19:12] LABS: FREE T4 (FREE THYROXINE) 0.86 ng/dL (0.58-1.64)
[2019-06-30 19:25] LABS: HB2 TOTAL 13.8 g/dL; HEMOGLOBIN A1C 0.61 g/dL; HEMOGLOBIN A1C % 6.2 % (4.6-6.2)
[2019-07-03 15:26] LABS: HIV AG/AB 4TH GEN NON-REACTIVE (NON-REACTIVE)
== END 2019-06-30 23:59 | disposition home or self-care (01) ==
LOC: LAB.WCP 11:00
PROVIDERS: ATTEND Family Medicine
DX: Z72.51 High risk heterosexual behavior (principal); F31.10 Bipolar disorder, current episode manic without psychotic features, unspecified
CPT/HCPCS: 36415; 80053; 80306; 81025; 81599; 83036; 84439; 84443; 85025; 86592; 87389

== ENCOUNTER 2019-07-04 14:30 | Outpatient (CLI) | payer OTHER, MEDICAID ==
[2019-07-04 15:34] LABS: MUDS CUTOFF CONCENTRATIONS CUTOFF CONC BELOW:
[2019-07-04 18:47] LABS: HCG UR QUAL NEGATIVE
[2019-07-04 19:02] LABS: AMPHETAMINE SCREEN,URINE NEGATIVE (NEGATIVE); BENZODIAZEPINES SCREEN, URINE NEGATIVE (NEGATIVE); COCAINE SCREEN URINE NEGATIVE (NEGATIVE); METHADONE SCREEN, URINE NEGATIVE (NEGATIVE); METHAMPHETAMINES SCREEN, URINE NEGATIVE (NEGATIVE); OPIATE SCREEN, URINE NEGATIVE (NEGATIVE); OXYCODONE SCREEN, URINE NEGATIVE (NEGATIVE); PROPOXYPHENE SCREEN, URINE NEGATIVE (NEGATIVE); TRICYCLIC ANTIDEPRESSANT,URINE NEGATIVE (NEGATIVE)
== END 2019-07-04 23:59 | disposition home or self-care (01) ==
LOC: LAB.WCP 14:30
PROVIDERS: ATTEND Psychiatry & Neurology Psychiatry
DX: F31.10 Bipolar disorder, current episode manic without psychotic features, unspecified (principal)
CPT/HCPCS: 80306; 81025

== ENCOUNTER 2019-10-27 09:17 | Outpatient (CLI) | payer MEDICAID ==
[2019-10-27 12:24] LABS: BASOPHILS # (AUTO) 0.1 10^3/uL (0.0-0.1); BASOPHILS % (AUTO) 0.7 %; EOSINOPHILS # (AUTO) 0.3 10^3/uL (0.0-0.7); EOSINOPHILS % (AUTO) 3.6 %; HGB - HEMOGLOBIN 14.5 g/dL (12.0-16.0); LYMPHOCYTES # (AUTO) 1.1 10^3/uL (1.5-3.5); MEAN CORPUSCULAR HEMOGLOBIN 29.4 pg (27.0-31.0); MEAN CORPUSCULAR HGB CONC 33.3 g/dL (32.0-36.0); MEAN CORPUSCULAR VOLUME 88.4 fL (81.0-99.0); MEAN PLATELET VOLUME 10.4 fL (7.9-10.8); MONOCYTES # (AUTO) 1.1 10^3/uL (0.0-1.0); MONOCYTES % (AUTO) 12.7 %; NEUTROPHILS # (AUTO) 6.2 10^3/uL (1.5-6.6); NEUTROPHILS % (AUTO) 70.3 %; PLT - PLATELET COUNT 273 10^3/uL (130-450); RED BLOOD COUNT 4.93 10^6/uL (4.20-5.40); RED CELL DISTRIBUTION WIDTH 13.2 % (12.0-15.0); WHITE BLOOD COUNT 8.8 x10^3/uL (4.8-10.8)
[2019-10-27 12:40] LABS: LITHIUM 0.24 mmol/L
[2019-10-27 12:41] LABS: ALBUMIN 3.7 g/dL (3.2-5.5); ALBUMIN/GLOBULIN RATIO 0.9 (1.0-2.2); ALKALINE PHOSPHATASE 63 IU/L (42-121); ALT ALANINE AMINOTRANSFERASE 36 IU/L (10-60); AST ASPARTATE AMINOTRANSFERASE 25 IU/L (10-42); BILIRUBIN,TOTAL 0.5 mg/dL (0.2-1.0); BUN - BLOOD UREA NITROGEN 14 mg/dL (6-20); CALCIUM 8.9 mg/dL (8.5-10.3); CARBON DIOXIDE - CO2 23 mmol/L (21-32); CHLORIDE 103 mmol/L (101-111); CHOLESTEROL 175 mg/dL; CREATININE 0.9 mg/dL (0.4-1.0); GFR - MDRD 68 (>89); GLUCOSE 116 mg/dL (70-100); HDL CHOLESTEROL 35 mg/dL; LDL CHOLESTEROL,CALCULATED 99 mg/dL; LDL/HDL RATIO 2.8 (<4.4); SODIUM 134 mmol/L (135-145); TOTAL PROTEIN 7.7 g/dL (6.7-8.2); VLDL CHOLESTEROL 41 mg/dL
[2019-10-27 12:55] LABS: THYROID STIMULATING HORMONE 3.11 uIU/mL (0.34-5.60)
[2019-10-27 12:57] LABS: FREE T4 (FREE THYROXINE) 0.77 ng/dL (0.58-1.64)
[2019-10-27 18:36] LABS: HCG UR QUAL NEGATIVE
== END 2019-10-27 23:59 | disposition home or self-care (01) ==
LOC: LAB.WCP 09:17
PROVIDERS: ATTEND Psychiatry & Neurology Psychiatry
DX: F31.10 Bipolar disorder, current episode manic without psychotic features, unspecified (principal)
CPT/HCPCS: 36415; 80053; 80061; 80178; 81025; 83721; 84439; 84443; 85025

== ENCOUNTER 2020-05-23 10:19 | Outpatient (CLI) | payer MEDICAID ==
[2020-05-23 11:22] VITALS: BP 122/74
--- NOTE | 2020-05-23 11:22 | SLEEP CARE CONSULTATION ---
Information from patient questionnaire entered by Sowmya Perez. I have reviewed and concur with the information entered by Sowmya Perez. This document represents the service I personally performed and the decisions made by me, Anika Perdue ARNP. History of Present Illness Service Date and Time: 05/23/2020 1019 Reason for Visit: Previously diagnosed sleep apnea (Obstructive Sleep Apnea, severe, AHI 52.7), sleep apnea on CPAP therapy, Re-establish care Chief Complaint: reports: Insomnia, Unrefreshed sleep, Snoring, Excessive daytime sleepiness, Observed pauses in breathing, Fatigue, Frequent awakenings at night, Other (Her symptoms have been becoming worse in the last few months due to machine not function well, pressure feels reduced at times) Date of Onset: 6+ months Usual bedtime: 5105-3317 Time it takes to fall asleep: 30 minutes Snores at night: Yes Observed to quit breathing while asleep: Yes Sleeps alone due to snoring: No Number of times waking at night: 3-4 Reasons for waking at night: reports: Choking, Gasping for air, Bathroom (2-3x). denies: Snoring Toss, Turn, or Twitch while sleeping: Yes Recalls having dreams: Yes Usually gets out of bed at: 4910-0684 Feels refreshed in the morning: No Morning headache: Yes Sleepy or fatigued during the day: Yes Ever fallen asleep while driving: Yes Takes day naps: Yes Dreams during day naps: No Prior sleep studies: Yes Year and Where: 2012 [facility] Type of Sleep Study: Polysomnography Additional HPI information: NAZANIN PULIDO was diagnosed to have severe, AHI 52.7, obstructive sleep apnea- hypopnea syndrome and returned today for CPAP therapy re-establishment of care, last seen in 2017. - Parasomnia Symptoms Ever been unable to move upon waking from sleep: No Walks in sleep: No Talks in sleep: No Ever acted out dreams in sleep: No Ever felt weak in the knees when startled or emotional: Yes Bothered by creepy, crawly, restless sensations in legs: Yes Problems with memory or concentration: Yes CPAP Compliance Data - Data Reviewed with Patient Average duration of nightly device use: 7 hrs 49 minutes Compliance rate %: 98.3 Current pressure setting (cmH2O): 11-14 Humidity settin Heated hose settin Average residual AHI: 3.0 Central apnea: 0.2 Obstructive apnea: 1.4 Average large leak: 2 minutes 39 seconds Compliance data discussion: She is getting supplies from [facility] as needed but her machine shows her DME as [facility]. Using a full face gel mask that was last changed last week. She does have a back up mask if needed. Subjective Patient concerns: reports: nasal congestion, dry mouth, nose, throat (dry nose), other (her headgear stretches out very fast and she has to tighten straps too much leaving marrufo on her face). denies: aerophagia, mask discomfort, air blowing in eyes, mask leak noise, condensation in mask/hose, epistaxis Observed to snore while using device: No Current pressure setting perceived as: comfortable On therapy, patient: reports: sleeping better, awakening more refreshed, being more awake and alert during the day, more rested overall. denies: drowsiness while driving Initial [place] Sleepiness Scale score: 17 (in 2019) Past Medical History Past Medical History: reports: Hypertension, Anxiety, Depression, Other (bipolar disorder). denies: Congestive Heart Failure, Coronary Heart Disease, Insulin resistance, Hypothyroidism Social History The patient's occupation is a NOT EMPLOYED. Patient is Single and lives in [place]. Have you smoked in the past 12 months: No Alcohol use: No Caffeine use: Yes Caffeine amount and frequency: soda/tea every once in a while Family History Family history of sleep disordered breathing: No Family Hx Sleep Apnea: Father: Sleep apnea - Treated Allergies and Home Medications Drug allergies reviewed: Yes (sulfa, ketorolac) Home medication list reviewed: Yes (some changes, lithium for bipolar 600 mg daily) Review of Systems Weight gain over past 5 years: 100 Cardiovascular: reports: high blood pressure, leg or foot swelling Respiratory: reports: shortness of breath, chronic cough Gastrointestinal: reports: heartburn Urinary: reports: frequency, urgency Neurological: reports: headaches, disorientation, speech dysfunction Psychiatric: reports: anxiety, depression, mood disorder Ear/Nose/Throat: reports: dry mouth/throat (medication side effect) Endocrine: reports: increased urination, unexplained weakness Musculoskeletal: reports: back pain, joint swelling Immunologic: reports: allergies to food or environment (seasonal) Physical Exam Blood Pressure: 122/74 Cuff size: long Heart Rate: 68 O2 Saturation: 99 Height: 4 ft 11 in Weight: 318 lb Body Mass Index: 64.2 BMI Classification: Morbidly Obese HEENT: No craniofacial malformation Nostrils: patent to airflow Turbinates: swollen Septum: midline Mouth and throat: narrow oropharynx Soft palate: long Hard palate: arched Uvula: normal Uvula visualization: 50% Mallampati Class II Tongue: normal in size Tonsils: 2+ Chin and jaw: normal size and position Neck: normal w/o lymphadenopathy or thyromegaly Heart: regular rate and rhythm Lungs: clear bilaterally Impression and Plan 1. Obstructive Sleep Apnea-Hypopnea Syndrome, severe, with good treatment compliance and good apnea control. On CPAP therapy, the patient has better sleep quality and is more rested overall. Nasal dryness can be reduced with increasing the CPAP humidity as shown on sample device and the heated hose can be increased if condensation. In addition, I gave the patient a few samples of Eren Ease nasal cream to be used 4 times a day for 7-10 days and then as needed. Nasal congestion can be reduced with increasing the CPAP humidity as shown on sample device. The heated hose can be adjusted higher if condensation with higher humidity setting. Saline nasal spray sample was also given to use prior to CPAP to clear nasal secretions and wash off any nasal allergens to facilitate nasal breathing. In addition, a steamy shower before bed will often assist nasal drainage. Patient has been having issues with her CPAP machine shutting off or the pressure feeling too weak at times for the last few months. The patients CPAP is over 5 years old and of reasonable use. Thus, the CPAP will be updated. The new CPAPs also have a better humidity system which could assist control of patients dryness symptoms. A DWO prescription will be made. Compliance guidelines for new device and follow up discussed. Patient has been using the same style of mask for many years and would like to try a different style of mask, so a mask refitting will be ordered. Patient's apnea severity and rationale for treatment to reduce apnea, improve sleep quality and reduce cardiovascular and cerebrovascular events was reviewed. I also reviewed the benefit of consistent device use of CPAP for her hypertension, depression/anxiety, and bipolar disorder. * Continue auto CPAP pressure at 11-14 cmH2O * Update machine due to age and malfunction * Mask refitting * Notify me if snoring with mask or feeling that the pressure is too much or too little * Attempt to lose weight * Call this office if any problems using CPAP * Return for follow up in 1-2 months, or sooner if concerns arise Counseling Topics: Spare mask, Weight loss health impact Visit Type: In Office Time Spent with Patient (minutes): 40 Provider Statement: I spent 100% of the Face to Face Visit with the patient with greater than 50% spent counseling the patient and coordination of care.
== END 2020-05-23 10:20 | disposition home or self-care (01) ==
LOC: SC 10:19
PROVIDERS: ATTEND Nurse Practitioner Family
DX: G47.33 Obstructive sleep apnea (adult) (pediatric) (principal); E66.01 Morbid (severe) obesity due to excess calories; Z68.44 Body mass index [BMI] 60.0-69.9, adult
CPT/HCPCS: 99203; 99212

== ENCOUNTER 2020-11-04 08:00 | Outpatient (CLI) | payer MEDICAID ==
[2020-11-04 18:36] LABS: BASOPHILS # (AUTO) 0.1 10^3/uL (0.0-0.1); BASOPHILS % (AUTO) 0.8 %; EOSINOPHILS # (AUTO) 0.7 10^3/uL (0.0-0.7); EOSINOPHILS % (AUTO) 5.6 %; HCT - HEMATOCRIT 42.7 % (37.0-47.0); HGB - HEMOGLOBIN 13.5 g/dL (12.0-16.0); LYMPHOCYTES % (AUTO) 16.4 %; MEAN CORPUSCULAR HEMOGLOBIN 28.3 pg (27.0-31.0); MEAN CORPUSCULAR HGB CONC 31.6 g/dL (32.0-36.0); MEAN CORPUSCULAR VOLUME 89.5 fL (81.0-99.0); MEAN PLATELET VOLUME 10.6 fL (7.9-10.8); MONOCYTES # (AUTO) 0.9 10^3/uL (0.0-1.0); NEUTROPHILS # (AUTO) 8.5 10^3/uL (1.5-6.6); NEUTROPHILS % (AUTO) 69.9 %; PLT - PLATELET COUNT 269 10^3/uL (130-450); RED BLOOD COUNT 4.77 10^6/uL (4.20-5.40); RED CELL DISTRIBUTION WIDTH 13.1 % (12.0-15.0); WHITE BLOOD COUNT 12.1 x10^3/uL (4.8-10.8)
[2020-11-04 19:23] LABS: THYROID STIMULATING HORMONE 2.85 uIU/mL (0.34-5.60)
[2020-11-04 19:32] LABS: ALBUMIN 3.7 g/dL (3.2-5.5); ALKALINE PHOSPHATASE 67 IU/L (42-121); ALT ALANINE AMINOTRANSFERASE 26 IU/L (10-60); AST ASPARTATE AMINOTRANSFERASE 20 IU/L (10-42); BILIRUBIN,TOTAL 0.5 mg/dL (0.2-1.0); BUN - BLOOD UREA NITROGEN 13 mg/dL (6-20); CALCIUM 8.8 mg/dL (8.5-10.3); CARBON DIOXIDE - CO2 25 mmol/L (21-32); CHLORIDE 107 mmol/L (101-111); CHOL/HDL RATIO 4.4 (<4.4); CHOLESTEROL 193 mg/dL; GLUCOSE 157 mg/dL (70-100); HDL CHOLESTEROL 44 mg/dL; LDL CHOLESTEROL,CALCULATED 89 mg/dL; POTASSIUM 3.7 mmol/L (3.5-5.0); SODIUM 138 mmol/L (135-145); TOTAL PROTEIN 7.5 g/dL (6.7-8.2); TRIGLYCERIDES 299 mg/dL; VLDL CHOLESTEROL 60 mg/dL
[2020-11-04 19:57] LABS: CREATININE 0.7 mg/dL (0.4-1.0); GFR - MDRD 91 (>89)
[2020-11-04 20:03] LABS: ESTIMATED AVERAGE GLUCOSE 126 mg/dL (70-100)
== END 2020-11-04 23:59 | disposition home or self-care (01) ==
LOC: LAB.WCP 08:00
PROVIDERS: ATTEND Family Medicine
DX: R73.01 Impaired fasting glucose (principal); I10 Essential (primary) hypertension; F31.9 Bipolar disorder, unspecified
CPT/HCPCS: 36415; 80053; 80061; 80178; 83036; 83721; 84443; 85025

== ENCOUNTER 2021-01-09 08:00 | Outpatient (CLI) | payer MEDICAID ==
[2021-01-09 12:34] LABS: LITHIUM 0.89 mmol/L
== END 2021-01-09 23:59 | disposition home or self-care (01) ==
LOC: LAB.WCP 08:00
PROVIDERS: ATTEND Psychiatry & Neurology Psychiatry
DX: F31.9 Bipolar disorder, unspecified (principal)
CPT/HCPCS: 36415; 80178